=== PATIENT | male | born 1965 | race Caucasian/White ===

== ENCOUNTER 2018-04-03 19:30 | Inpatient (IN) ==
[~2018-04-03 19:30] MED LIST: Iohexol 350 MG/ML 100 ML Vial (for Cath Lab) IVCONTRAST ONE
[2018-04-03] MEDS ORDERED: Heparin 10,000 UNITS/10 ML Vial (for IV use) IV.PUSH STA (19:32)
[2018-04-03] MEDS ORDERED: Sod Chloride 0.9% Inj 1,000 ML IV.SIG SCH (19:45)
--- NOTE | 2018-04-03 19:45 | XR ---
EXAM DATE: 04/03/2018 7:42 PM EDT AGE/SEX: 53 years / Male INDICATIONS: Chest pain, STEMI alert. CLINICAL DATA: This is the patient's initial encounter. Patient reports that signs and symptoms have been present for 1 day and indicates a pain score of 7/10. MEDICAL/SURGICAL HISTORY: None. None. COMPARISON: No prior exams available for comparison. FINDINGS: Diffuse infiltrates are noted consistent with moderate pulmonary edema versus pneumonia. Clinical cor relation is recommended. The heart is mildly prominent. Degenerative changes and scoliosis of the tho racic spine are noted. CONCLUSION: 1. Diffuse infiltrates are noted consistent with moderate pulmonary edema versus pneumonia. Clinical correlation is recommended. 2. Mild cardiomegaly. Electronically signed by: Larry Langston MD 04/03/2018 7:44 PM EDT
--- NOTE | 2018-04-03 19:48 | ED ---
HPI General Stated Complaint: STEMI Time Seen by Provider: 04/03/18 19:32 Source: patient and EMS Mode of arrival: EMS Limitations: no limitations History of Present Illness HPI narrative: 53-year-old male patient presents to the ER today brought in by EMS, apparently started having substernal chest pains with radiation to the back starting about half an hour prior to EMS arrival. He was given aspirin baby 2. His blood pressure had gone down to 70/30 while on the ambulance, he was given IV fluid boluses. He is cool and diaphoretic, states that chest pain is currently a 7-8 out of 10. He denies any shortness of breath, abdominal pains, or other symptoms. He states that he did have a similar chest pain episodes on Sunday but he had gone away on its own. Complete Quality Measures for STEMI Alert Patients Related Data Allergies Allergy/AdvReac Type Severity Reaction Status Date / Time No Known Allergies Allergy Verified 04/03/18 19:34 Review of Systems ROS: all other systems reviewed are negative PMFSH History History Provided By: Patient Social History Social History Recent Out of Country Travel within the Last 8 Weeks: No Exam Narrative Exam Narrative: GENERAL: Well-developed middle-age male patient who is in moderate distress. Awake and oriented 3. SKIN: Focused skin assessment: Diaphoretic,cool. HEAD: Atraumatic. Normocephalic. EYES: Pupils equal and round. No scleral icterus. No injection or drainage. ENT: No nasal bleeding or discharge. Mucous membranes pink and moist. NECK: Trachea midline. No JVD. CARDIOVASCULAR: Regular rate and rhythm. No murmur appreciated. RESPIRATORY: No accessory muscle use. Clear to auscultation. Breath sounds equal bilaterally. GASTROINTESTINAL: Abdomen soft, non-tender, nondistended. Hepatic and splenic margins not palpable. MUSCULOSKELETAL: No obvious deformities. No clubbing. No cyanosis. No edema. NEUROLOGICAL: Awake and alert. No obvious cranial nerve deficits. Motor grossly within normal limits. Normal speech. PSYCHIATRIC: Appropriate mood and affect; insight and judgment normal. Medical Decision Making MDM Narrative Medical decision making narrative: EKG shows ST elevations in V1 through V3, ST depressions and inferior leads III and aVF. This is concerning for STEMI. Case was discussed with Dr. Foley who states that he would go ahead and called a STEMI alert. Heparin was given in the ER. Patient had taken his own aspirin before EMS arrival. Patient's blood pressure was 220/110 in the ER and nitroglycerin had to be given. He had gotten some IV fluids on EMS transport because his blood pressure was low at one-point. At this point, my plan is to get him ready for catheterization. Patient be admitted to cardiology for further cardiac treatment. Medical Screen Exam Complete: Yes Emergency Medical Condition: Yes Differential Diagnosis Differential Diagnosis: STEMI versus electrolyte abnormalities versus unstable angina versus dysrhythmias Discharge Plan Discharge Disposition Patient Disposition: 30 Still Patient Discharge Condition Condition: Stable Discharge Details Anticipated Discharge Date: 04/03/[address]: [address] elevation myocardial infarction (STEMI) Physicians Team ED Provider: Chicho Cortes Primary Care Provider: UNKNOWN, Discharge Interventions Interventions: Vital Signs Last Done: 04/03/18 19:45 Status ED Status: With Doctor
[2018-04-03 19:56] LABS: Baso # (Auto) 0.1 th/mm3 (0.0-0.2); Baso % (Auto) 1.2 % (0.0-2.0); Eos # (Auto) 0.1 th/mm3 (0.0-0.4); Hemoglobin 16.6 gm/dL (13.0-17.0); Lymph # (Auto) 4.6 th/mm3 (1.0-4.8); Lymph % (Auto) 37.4 % (9.0-44.0); Mean Corpuscular HGB Conc 33.8 % (32.0-36.0); Mean Corpuscular Hemoglobin 30.7 pg (27.0-34.0); Mean Corpuscular Volume 90.9 fL (80.0-100.0); Mean Platelet Volume 9.1 fL (7.0-11.0); Mono # (Auto) 1.2 th/mm3 (0.0-0.9); Mono % (Auto) 9.6 % (0.0-8.0); Neut # (Auto) 6.2 th/mm3 (1.8-7.7); Neut % (Auto) 50.8 % (16.0-70.0); Platelet Count 224 th/mm3 (150-450); Red Blood Count 5.39 mil/mm3 (4.50-5.90); Red Cell Distribution Width 13.6 % (11.6-17.2); White Blood Count 12.2 th/mm3 (4.0-11.0)
[2018-04-03] MEDS ORDERED: Heparin/NS PF Inj 1,000 ML ONE (20:03)
[2018-04-03] MEDS ORDERED: fentaNYL Citrate Inj 100 MCG/2 ML Ampul ONE (20:09)
[2018-04-03] MEDS ORDERED: Heparin 10,000 UNITS/10 ML Vial (for IV use) ONE (20:10)
[2018-04-03 20:12] LABS: Activated Partial Thrombo Time 22.9 sec (24.3-30.1); Prothrombin Time 9.8 sec (9.8-11.6)
[2018-04-03 20:24] LABS: Calcium 9.2 mg/dL (8.5-10.1)
[2018-04-03 20:39] LABS: Creatine Kinase 114 U/L (39-308); Magnesium 2.2 mg/dL (1.5-2.5)
[2018-04-03 20:47] LABS: Troponin I 0.73 ng/mL (0.02-0.05)
[2018-04-03] MEDS ORDERED: Tirofiban Inj 12,500 MCG/250 ML PLAST..BAG ONE (20:50)
[2018-04-03 20:59] LABS: Creatine Kinase MB 2.1 ng/mL (0.5-3.6)
[2018-04-03] MEDS ORDERED: Heparin Drip 25,000 UNIT/250 ML BAG IV.CONT ONE (21:03)
[2018-04-03] MEDS ORDERED: TIROFIBAN BOLUS IV.PUSH ONE (21:16)
[2018-04-03] MEDS ORDERED: Misc Info for Pharmacy OTHER STA (21:16)
--- NOTE | 2018-04-03 21:16 | CATHPROC ---
[facility] HIS Report Study Information Study Number Admission Scheduled Start Study Start [id number] Apr 03 2018 7:50PM 04/03/2018 Apr 03 2018 8:04PM [place] [facility] Cardiac Catheterization Admit Source Facility Department Emergency department [facility] - Penal Officer Physician and Clinical Staff Initial Antonio Anne Sole Tacker Alyson Linn,RUMA Sole Tacker Bertha Alfred ,RT(R) Sole Tacker Madie Cota,RUMA Recorder Aaliyah Rodriguez ,NANCIN Scrub Nayeli Alfonso,SCHOOL PLANT CONSULTANT TECH2 Procedures Performed Procedure Location (Site) Vessel Name Angiogram LV LV Ventricle Coronary Angiograms LCA Left Coronary Coronary Angiograms RCA Right Coronary IABP Fem Art (right) Femoral Art L Heart Cath Stent LAD Prox Left Coronary Wire insertion Fem Art (right) Femoral Art Equipment Time Lube Attendant Description Size Mfg Part Number Used/Scraped [id number] 20:32 [employer] WIRE, ASAHI PROWATER 180CM 180CM Used *[id number] TRANSDUCER, TRUWAVE [id number] 20:10 BARRETT KENDRICK * Used W/STOCKCOCK *[id number] *[id number] [id number] *[id number] *[id number] [id number] *[id number] *[id number] BALLOON, FR8 50CC SENSATION [id number] 20:58 MAQUET FR 8 50CC Used PLUS 01U *[id number] 20:10 [employer] BLANKET,WARM AIR CCL * Used *[id number] 20:10 [employer] PACK, CCL CUSTOM * Used *[id number] 20:10 [employer] PACER PEN, SKIN DUAL W/ RULER * Used *[id number] 20:38 [employer] BALLOON, 2.5 X 10MM EUPHORA 10MM Used *[id number] 20:39 [employer] STENT, 4.0 15 INTEGRITY 4.0 15 Used *[id number] 20:29 [employer] MEDICAL 30 PETER INDEFLATOR Used *[id number] 20:29 [employer] MEDICAL SHEATH, FR6.5 PRELUDE 11CM FR 6.5 038ACT Used *[id number] 20:10 [employer] MEDICAL WIRE, 3MMJ .035 180CM 180CM Used *[id number] 20:10 NAMIC MANIFOLD, 4 PORT * Used *[id number] 20:10 [employer] OMNIPAQUE, 350 MG, 150ML 150ML [id number] Used [id number] 20:10 [employer] MEDICAL SHEATH, FR4 TERUMO (10CM) FR 4 Used *[id number] Equipment Model, Serial, Lot Number and Expiration Data Description Model Number Serial Number Lot Number Expiration Date STENT, 4.0 15 INTEGRITY [id number] 01-25-2019 History: Current Medications Medication Dosage/Unit Route Frequency Last Date/Time Taken ASA 324 mg History: Allergies Allergy Reaction No Known Allergies History: Risk Factors Family History of Hypertension Dyslipidemia Previous WI Previous Heart Failure Premature CAD No No No No No Prior Valve Prior PCI Prior CABG Surgery No No No Cerebrovascular Peripheral Artery Chronic Lung On Dialysis Diabetes Disease Disease Disease No No No No No History: Symptoms/Diagnosis Selection Items Chest pain History: Stress Tests Stress or Imaging Studies Performed No History: Other Current Smoker Method Quit No Chew 10 Years Ago Labs Hgb (g/dl) Hct (%) WBC (l/cumm) Platelets (thousands) 11.60-17.00 35.00-51.00 4.00-11.00 150.00-450.00 16.6 49 12.2 224 Glucose (mg/dl) BUN (mg/dl) Creatinine (mg/dl) BUN:Creatinine (1:x) 74.00-106.00 7.00-18.00 0.50-1.30 10.00-20.00 348 24 1.1 21.8 Na (meq/l) K (meq/l) 136.00-145.00 3.50-5.10 135 5.8 Medication Medication Total Dose (Bolus/Oral) Medication Total Dosage/Unit 1% XYLOCAINE 10 mL AGGRASTAT BOLUS 58 mL EFFIENT 60 mg FENTANYL 25 mcg HEPARIN 8100 units OXYGEN 19 l/min VERSED 1 mg Medications (Bolus/Oral) Medication Time Given Dosage/Unit Administered By Reason OXYGEN 04/03/2018 8:21:46 PM 4 l/min Patient arrived on 4 l/min OXYGEN via Nasal. 1% XYLOCAINE 04/03/2018 8:30:05 PM 10 mL Antonio Foley Patient arrived on 10 mL 1% XYLOCAINE given by Antonio Foley via Subcutaneous. Ordered by Antonio Foley. VERSED 04/03/2018 8:34:18 PM 1 mg Alyson Linn 1 mg VERSED given in lab by Alyson Linn RN via Peripheral IV. Ordered by Antonio Foley. FENTANYL 04/03/2018 8:35:28 PM 25 mcg Alyson Linn 25 mcg FENTANYL given in lab by Alyson Linn RN via Peripheral IV. Ordered by Antonio Foley. OXYGEN 04/03/2018 8:40:38 PM 15 l/min Alyson Linn 15 l/min OXYGEN given in lab by Alyson Linn RN via Nasal. Ordered by Antonio Foley. HEPARIN 04/03/2018 8:41:37 PM 8100 units Alyson Linn 8100 units HEPARIN given in lab by Alyson Linn RN via Peripheral IV. Ordered by Antonio Foley . EFFIENT 04/03/2018 8:55:35 PM 60 mg Alyson Linn 60 mg EFFIENT given in lab by Alyson Linn RN via Oral. Ordered by Antonio Foley. AGGRASTAT BOLUS 04/03/2018 8:57:21 PM 58 mL Alyson Linn 58 mL AGGRASTAT BOLUS given in lab by Alyson Linn RN via Peripheral IV. Ordered by Moises Foley. Medication (Drip) Medication Time Given Dosage/Unit Concentration/Unit Diluent (ml) Solution AGGRASTAT DRIP 04/03/2018 9:02:14 PM 0.151 mcg/kg/min 12.5 mg 250 NaCl .9 0.151 mcg/kg/min AGGRASTAT DRIP given in lab by Alyson Linn RN via Peripheral IV. Pump/Drip Flow = 21 ml/hr using NaCl .9 with a concentration of 12.5 mg in 250 ml. Ordered by Antonio Foley. HEPARIN DRIP 04/03/2018 9:05:43 PM 1200 units/hr 72263 units 250 D5W 1200 units/hr HEPARIN DRIP given in lab by Madie Cota RN via Peripheral IV. Pump/Drip Flow = 12 ml/hr [place]5W [place] [address] units in 250 ml. Ordered by Antonio Foley. IV Solutions 04/03/2018 8:24:51 PM 50 mL (IV) NaCl .9 Patient arrived on IV Solutions via Peripheral IV. Pump/Drip Flow using NaCl .9. NIPRIDE 04/03/2018 8:43:14 PM 100 mcg 100 mcg NIPRIDE given in lab by Antonio Foley via Intra-coronary. Ordered by Antonio Foley. NIPRIDE 04/03/2018 8:44:20 PM 100 mcg 100 mcg NIPRIDE given in lab by Antonio Foley via Intra-coronary. Ordered by Antonio Foley. Initial Case Assessment Cardiovascular HR Rhythm NIBP Chest Pain 114 stemi 171/126 7 Edema Present Skin color Skin Mild Normal Warm Dry Circulatory - Right Pulses Dorsalis Pedis Femoral 2 1 Scale (0,1,2,3,4,d) Circulatory - Left Pulses Dorsalis Pedis Femoral 2 1 Scale (0,1,2,3,4,d) Neurological State Oriented to time-place- Alert Moves all extremities person Respiration - General Respiration Rate SpO2 (%) O2 (lpm) (B/min) 12 84 4 Final Case Assessment Cardiovascular HR Rhythm NIBP Chest Pain 110 ST 130/89 5 Edema Present Skin color Skin None Normal Warm Dry Circulatory - Right Pulses Dorsalis Pedis Femoral 2 1 Scale (0,1,2,3,4,d) Circulatory - Left Pulses Dorsalis Pedis Femoral 2 1 Scale (0,1,2,3,4,d) Circulatory - Lower Extremities Color Lower Right Color Lower Left Normal Normal Chronological Log Time Study Chronological Log 20:08:14 Emergency Room notified that Penal Officer is ready. 20:15:27 Patient arrived via Bed. 20:15:28 Patient Name, D.O.B, / Armband Verified By R.N. 20:15:31 Pre-op and post- op instructions given; patient acknowledges understanding of instructions. 20:21:46 Patient arrived on 4 l/min OXYGEN via Nasal. Vitals capture started with the following parameters, Patient=Adult, Interval=3 min, Initial Pr tpfxcb=152 mmHg, 20:24:33 Deflation Rate=5 mmHg, Cuff placed on Left Arm 20:24:41 Bilateral groins prepped with 2% chlorhexidine, and draped after a 3 minute waiting time. 20:24:43 Patient has been NPO for More than 6Hrs. 20:24:48 Skin Breakdown- 20:24:49 Patient Warmer Placed on the Table. 20:24:50 Disposable Defibrillator Pads Placed On Patient. 20:24:50 [place] Prominences Protected 20:24:51 A # 20 IV was noted in the Forearm (right). Grade = 0 20:24:51 Patient arrived on IV Solutions via Peripheral IV. Pump/Drip Flow using NaCl .9. 20:24:52 History and physical on the chart or being dictated. Assessment: Initial Case, XM=009 BPM, Rhythm=stemi, KEYM=027/126 mmhg, Chest Pain=7, Edema=Mild , Color=Normal, Skin = Warm, Dry Right Pulses: Giorgio Ped=2, Femoral=1 20:24:52 Left Pulses: Giorgio Ped=2, Femoral=1 Neurological: State=Alert, Ox3, PEREZ Respiration: Resp=12 B/min, SpO2=84 %, O2=4 lpm 20:25:19 HM=668 bpm, FLUJ=728/126 mmhg, SpO2=84.0 %, Resp=12 B/min, Pain=7, [place]=10, Mcclure=2 20:25:47 Reference ECG taken 20:25:54 MD arrived. Time Out. Correct patient, correct procedure, correct physician, labs, allergies, and equipment verified with laboratory chief 20:27:36 team present. Fire risk assesment completed (see hard stop sheet for coding). Time Out Conc urred by MD and individual staff in procedure. 20:28:21 PW=441 bpm, CEMZ=893/119 mmhg, SpO2=91.0 %, Resp=15 B/min 20:28:41 Case Start 20:30:05 Patient arrived on 10 mL 1% XYLOCAINE given by Antonio Foley via Subcutaneous. Ordered b y Antonio Foley. 20:30:23 Pressure channel 1 zeroed. 20:31:08 PATIENT RECEIVED HEPARIN 6000 UNITS AND ASA 324 MG PRIOR TO SKY CAP ARRIVAL 20:31:37 Access site was Right Femoral Artery. 20:31:44 A SHEATH, FR6.5 PRELUDE 11CM FR 6.5 was advanced into the Fem Art (right) using the Percuta neous technique. 20:31:54 LD=160 bpm, LVJI=895/120 mmhg, SpO2=92.0 %, Resp=15 B/min A XB 4.0 GUIDE CATHETER FR 6 was advanced over a wire. OMNIPAQUE, 350 MG, 150ML 150ML was used for 20:32:43 injections. 20:32:52 Activated Clotting Time Drawn Recorded Pressure: Ao, KA=011, Condition=Condition 1 20:33:39 (Aorta) Ao 132/98/115 20:34:18 MU=798 bpm, PASA=607/107 mmhg, SpO2=89.0 %, Resp=17 B/min 20:34:18 1 mg VERSED given in lab by Alyson Linn, RUMA via Peripheral IV. Ordered by Moises Foley. 20:34:40 The LCA was injected and visualized at various angles. OMNIPAQUE, 350 MG, 150ML 150ML used . 20:35:28 25 mcg FENTANYL given in lab by Alyson Linn RN via Peripheral IV. Ordered by Antonio Foley. 20:35:42 ACT (Normal Range 90-180) = 174 20:36:04 A WIRE, ASAHI PROWATER 180CM 180CM was inserted via Fem Art (right). 20:37:18 OT=661 bpm, RKNI=238/109 mmhg, SpO2=95.0 %, Resp=19 B/min 20:37:40 Interventional wire has crossed the lesion An STENT, 4.0 15 INTEGRITY 4.0 15 Bare Metal Stent was inserted through a XB 4.0 GUIDE CATHETER FR 6 over a 20:39:20 WIRE, ASAHI PROWATER 180CM 180CM. 20:40:22 JN=815 bpm, WIFX=424/116 mmhg, SpO2=94.0 %, Resp=21 B/min 20:40:38 15 l/min OXYGEN given in lab by Alyson Linn, RUMA via Nasal. Ordered by Antonio Foley. A STENT, 4.0 15 INTEGRITY 4.0 15 was deployed using a 30 PETER INDEFLATOR at 10 atmospheres for 1 0 seconds in 20:41:15 the LAD Prox. 20:41:37 8100 units HEPARIN given in lab by Alyson Linn, RUMA via Peripheral IV. Ordered by Antonio Ansari. 20:41:57 Delivery device removed 20:43:14 100 mcg NIPRIDE given in lab by Antonio Foley via Intra-coronary. Ordered by Elise Foley rthur. 20:43:18 UQ=658 bpm, EQHH=057/102 mmhg, SpO2=95.0 %, Resp=26 B/min, Pain=5 20:44:20 100 mcg NIPRIDE given in lab by Antonio Foley via Intra-coronary. Ordered by Elise Foley rthur. 20:44:27 Activated Clotting Time Drawn 20:45:56 Wire removed 20:46:00 Catheter was removed 20:46:14 FK=942 bpm, EENM=743/97 mmhg, SpO2=89.0 %, Resp=6 B/min A JR 4.0 INFINITI CATHETER FR 4 was advanced over a wire. OMNIPAQUE, 350 MG, 150ML 150ML was us ed for 20:46:22 injections. Recorded Pressure: LV, YI=997, Condition=Condition 1 20:47:42 (Left Ventricle) LV 127/21/33 Recorded Pressure: LV, Ao, BF=220, Condition=Condition 1 20:47:57 (Left Ventricle) LV 123/-3/31, (Aorta) Ao 131/98/114 20:48:30 The RCA was injected and visualized at various angles. OMNIPAQUE, 350 MG, 150ML 150ML used . 20:49:17 RS=069 bpm, TYVN=332/111 mmhg, SpO2=83.0 %, Resp=17 B/min, Pain=3 After removing the current catheter a PIGTAIL ANG. INFINITI CATHETER FR 4 was advanced over a W JIMMY, 3MMJ .035 20:51:25 180CM 180CM. 20:52:48 LC=428 bpm, GZDG=875/95 mmhg, SpO2=96.0 %, Resp=16 B/min 20:53:02 The LV was injected at 10 cc/sec for a total of 20. OMNIPAQUE, 350 MG, 150ML 150ML used. 20:53:57 Catheter was removed 20:55:15 LP=856 bpm, KHLK=645/110 mmhg, SpO2=95.0 %, Resp=23 B/min 20:55:35 60 mg EFFIENT given in lab by Alyson Linn, RN via Oral. Ordered by Antonio Foley. 20:55:53 Sheath exchanged for intra-aortic balloon insertion. 20:57:21 58 mL AGGRASTAT BOLUS given in lab by Alyson Linn, RN via Peripheral IV. Ordered by Antonio Grullon. An BALLOON, FR8 50CC SENSATION PLUS FR 8 50CC was advanced to the descending aorta. Proper plac ement was 20:57:59 confired under fluoroscopy and the balloon was sutured in place. Ratio = 1. Augmented BP 118/76 20:58:15 PC=230 bpm, IOKM=963/97 mmhg, SpO2=96.0 %, Resp=11 B/min 21:01:14 ZN=669 bpm, TSVR=453/94 mmhg, SpO2=97.0 %, Resp=18 B/min 0.151 mcg/kg/min AGGRASTAT DRIP given in lab by Alyson Linn, RN via Peripheral IV. Pump/Dri p Flow = 21 ml/hr 21:02:14 using NaCl .9 with a concentration of 12.5 mg in 250 ml. Ordered by Antonio Foley. 21:02:25 ACT (Normal Range 90-180) = 259 21:03:35 Case End (Physician broke scrub) 21:04:16 HE=991 bpm, EHLL=716/89 mmhg, SpO2=98.0 %, Resp=18 B/min 1200 units/hr HEPARIN DRIP given in lab by Madie Cota, RUMA via Peripheral IV. Pump/Drip Anshu w = 12 ml/hr using 21:05:43 [place] [address] units in 250 ml. Ordered by Antonio Foley. Assessment: Final Case, CB=443 BPM, Rhythm=ST, XSZU=058/89 mmhg, Chest Pain=5, Edema=None, Col or=Normal, Skin = Warm, Dry Right Pulses: Giorgio Ped=2, Femoral=1 21:05:59 Left Pulses: Giorgio Ped=2, Femoral=1 Lower Right Extremities: Color=Normal Lower Left Extremities: Color=Normal 21:07:14 TD=430 bpm, SVON=401/101 mmhg, SpO2=97.0 %, Resp=10 B/min 21:07:25 In the Fem Art (right) the sheath was sutured in place by Madie Cota, RUMA. 21:07:26 Sterile dressing applied to site 21:07:27 No case complications noted. 21:07:28 Cine recording checked. 21:07:30 Bedside Report will be given. 21:07:31 Implantable Device card placed in patient's chart. 21:07:53 A Left Heart Cath was performed. 21:10:12 EK=009 bpm, NKGR=931/96 mmhg, SpO2=98.0 %, Resp=12 B/min 21:14:00 ME=311 bpm, TIIK=119/97 mmhg, SpO2=97.0 %, Resp=23 B/min 21:19:15 Patient moved to stretcher End Study - Contrast Media Used In Study Contrast Total Opened (mL) Total Used (mL) Total Wasted (mL) Omnipaque 170 170 0 End Study - Maximum Contrast Load Max Contrast Load (mL) 525.4 End Study - Radiation Exposure Fluoro Time (minutes) 5.8 End Study - Patient Disposition Complications Transferred To Interventional Outcome No Critical Care Bed successful
[2018-04-03] MEDS ORDERED: Tirofiban Inj 12,500 MCG/250 ML PLAST..BAG IV.CONT SCH (22:00)
[2018-04-03] MEDS: Heparin Drip 25,000 UNIT/250 ML BAG IV.CONT PRN (22:00)
[2018-04-03] MEDS ORDERED: Dextrose 50% in Water 50 ML Vial IV.PUSH PRN (22:35)
--- NOTE | 2018-04-03 22:37 | P.CONCC ---
History of Present Illness Service: CC Consult date: 04/03/18 Requesting Physician: Antonio Foley Reason for Consult: CC management Primary Care Provider: UNKNOWN History of Present Illness: 53-year-old male patient presents for an evaluation of substernal chest pains with radiation to the back starting about half an hour prior to EMS arrival. He was given aspirin 81mg 2. His blood pressure had gone down to 70/30 while on the ambulance, he was given IV fluid boluses. In the emergency department he was cool and diaphoretic, stating that chest pain was currently a 7-8 out of 10. He denied any shortness of breath, abdominal pains, or other symptoms. He did have a similar chest pain episodes on Sunday but he had gone away on its own. He was taken emergently to cardiac catheterization lab where the LAD occlusion was treated with a CHANDAN and IABP was placed for hemodynamic instability by twisting frame fixer. Review of Systems All other systems reviewed negative except as stated in HPI [facility] - History History Provided By: Patient - Medical History Medical History: Medical History (Last Updated 04/03/18 @ 19:43 by Kaitlynn Faulkner) Patient denies medical problems - Surgical History Surgical History: Surgical History (Last Updated 04/03/18 @ 22:30 by Adalid Verma MD) No history of previous surgery (Acute) - Social History I have reviewed the patient's Social History: Yes - Tobacco History Second Hand Smoke Exposure: No Tobacco Use In Past 30 Days: Yes Smoking Status: Never smoker Tobacco Type: Smokeless Tobacco - Alcohol History How Often Do You Have a Drink Containing Alcohol: 2 to 3 times a week - Substance Use History Substance History: No History of Abuse - Travel History Recent Travel Out of the Country Within the Last 8 Weeks: No - Immunization History Tetanus Immunization: Unsure Hx Influenza Vaccine This Season: No Medications and Allergies Active Medications: Active Medications Aspirin (Aspirin Chew) 162 mg PO DAILY [facility] Sodium Chloride (Ns Inj) 1,000 mls @ 30 mls/hr IV.SIG .Q24H [facility] Stop: 04/04/18 19:44 Last Admin: 04/03/18 19:50 Dose: 30 mls/hr Tirofiban/Sodium Chloride (Aggrastat Inj) 12,500 mcg in 250 mls @ 0 mls/hr IV.CONT .Q0M [facility]; Protocol Prasugrel (Effient) 10 mg PO DAILY [facility] Sodium Chloride (Ns Flush) 2 ml IV.FLUSH BID [facility] Sodium Chloride (Ns Flush) 2 ml IV.FLUSH PRN PRN PRN Reason: FLUSH AFTER USING IV ACCESS Allergies Allergy/AdvReac Type Severity Reaction Status Date / Time No Known Allergies Allergy Verified 04/03/18 19:34 Physical Exam Vital signs: Vital Signs 04/03/18 19:30 04/03/18 19:34 04/03/18 19:45 Temperature 97.6 F Pulse Rate 121 H 110 H Respiratory Rate 20 20 Blood Pressure 237/138 H 182/119 H Pulse Oximetry 94 L 91 L 94 L 04/03/18 19:47 04/03/18 19:56 04/03/18 19:57 Temperature Pulse Rate 113 H 112 H Respiratory Rate 20 20 Blood Pressure 188/98 H 175/107 H Pulse Oximetry 93 L 92 L 92 L 04/03/18 20:15 Temperature Pulse Rate 120 H Respiratory Rate 22 Blood Pressure 182/103 H Pulse Oximetry 95 Intake & Output 04/03/18 04/03/18 04/04/18 06:59 18:59 06:59 Intake Total 210 / 210 Balance 210 / 210 Weight 128 kg Intake: IV 10 / 10 Heparin/NS PF Inj 1,000 ML @ 0 10 / 10 mls/hr .ROUTE .[facility] Rx#: [id number] Anesthesia Amount 200 / 200 Other: Weight On Admission 128 kg - Constitutional no acute distress - Routine HEENT Exam Head: Present: normocephalic, atraumatic Eye: Present: EOMI, PERRL, normal accommodation ENT: Present: mucous membranes moist - Routine Neck Exam Present: supple, full ROM. Absent: JVD, carotid bruit - Routine Respiratory Exam Absent: accessory muscle use, rhonchi, stridor, wheezes - Routine Cardiovascular Exam Present: RRR, S1, S2. Absent: murmur, gallop, rubs - Routine Abdominal Exam Present: soft, normoactive bowel sounds. Absent: tenderness, distended - Routine Extremities Exam Absent: cyanosis, clubbing, edema - Routine Skin Exam Present: intact. Absent: cyanosis, erythema - Routine Neurological Exam Present: alert, oriented X3, moving all extremities - Detailed Neurological Exam: Coma Scale Eye Opening: Spontaneous Verbal Response: Oriented Motor Response: Obey commands [place] Coma Scale Total: 15 - Routine Psychiatric Exam Present: normal affect Assessment and Plan - Assessment and Plan Plan: STEMI -Status post emergent cardiac catheterization -LAD CHANDAN -Aggrastat -Prasugrel -Aspirin -Further management per twisting frame fixer Tobacco abuse -Counseling provided Hyperglycemia -Hemoglobin A1c a.m. -Insulin sliding scale DVT GI prophylaxis -Teds SCDs -Pharmacological DVT prophylaxis per twisting frame fixer -Cardiac diet 35 minutes of critical care
[2018-04-04 04:18] LABS: Baso % (Auto) 0.3 % (0.0-2.0); Eos % (Auto) 0.1 % (0.0-4.0); Hematocrit 48.3 % (39.0-51.0); Hemoglobin 16.4 gm/dL (13.0-17.0); Lymph # (Auto) 2.1 th/mm3 (1.0-4.8); Lymph % (Auto) 14.2 % (9.0-44.0); Mean Corpuscular HGB Conc 33.9 % (32.0-36.0); Mean Corpuscular Hemoglobin 30.7 pg (27.0-34.0); Mean Corpuscular Volume 90.6 fL (80.0-100.0); Mean Platelet Volume 9.6 fL (7.0-11.0); Mono # (Auto) 1.3 th/mm3 (0.0-0.9); Mono % (Auto) 8.5 % (0.0-8.0); Neut # (Auto) 11.5 th/mm3 (1.8-7.7); Neut % (Auto) 76.9 % (16.0-70.0); Platelet Count 214 th/mm3 (150-450); Red Blood Count 5.33 mil/mm3 (4.50-5.90); Red Cell Distribution Width 13.6 % (11.6-17.2); White Blood Count 14.9 th/mm3 (4.0-11.0)
[2018-04-04 04:49] LABS: Calcium 8.6 mg/dL (8.5-10.1); Carbon Dioxide 25.9 meq/L (21.0-32.0); Potassium 4.5 meq/L (3.5-5.1)
[2018-04-04 05:15] LABS: Chol/HDL Ratio 5.42 Ratio; HDL Cholesterol 40.7 mg/dL (40.0-60.0)
[2018-04-04] MEDS ORDERED: Tirofiban Inj 12,500 MCG/250 ML PLAST..BAG IV.CONT SCH (05:30)
[2018-04-04 05:49] LABS: Creatine Kinase MB 421.1 ng/mL (0.5-3.6)
[2018-04-04 05:58] LABS: CKMB Percent 6.2 % (0.0-4.0)
--- NOTE | 2018-04-04 07:39 | MA ---
cc: Antonio Foley MD DATE: 04/03/2018 PROCEDURES: Left heart catheterization, left ventriculography, coronary angiography, aortic root angiography, right femoral artery angiography, direct primary percutaneous coronary intervention with bare metal stent of the ostial proximal left anterior descending, intraaortic balloon pump placement. INDICATIONS FOR PROCEDURE: STEMI, coronary artery disease, cardiogenic shock, decompensated congestive heart failure, cardiomyopathy, placement of intraaortic balloon pump. DETAILS OF PROCEDURE: The patient was brought to the cardiac catheterization laboratory, prepped and draped in the usual sterile fashion. 10 mL of 1% lidocaine was used to locally anesthetize the right common femoral artery. A 6-Tongan sheath was placed in the right common femoral artery. We went immediately with a 6-Tongan XB 4.0 guide. Initial ACT was 178. Additional 70 units per kilograms of heparin was given. ACT was 259. Angiography revealed an occluded LAD at the ostium, a medium size to large ramus intermedius vessel with no significant disease and a relatively small left circumflex vessel, reference vessel diameter of probably 3 mm proximally. No significant disease in the left circ. There is a medium size obtuse marginal vessel, which comes off the mid AV groove left circumflex with no significant disease angiographically. The left circumflex vessel is a small diminutive vessel, probably 0.5 mm in diameter. Across the ostial LAD with a 0.14 [place] guidewire, this resulted in reperfusion. Patient's chest pain immediately improved. We then placed a 4.0 x 15 Integrity stent 10 atmospheres for 20 seconds. Stenosis went from 100% with NELL 0 flow to 0% with NELL 3 flow. We gave 100 mcg of intracoronary Nipride x2. We then proceeded to perform left ventriculography, right coronary angiography with a 4-Tongan JR4 diagnostic catheter. The LV pressures 130/24/33. The left ventricle appeared to be mild to moderately enlarged fluoroscopically. The mid to distal anteroapical wall was moderate to severely hypokinetic, but there was wall motion suggesting myocardial viability and/or stunned myocardium. The right coronary artery is a large, dominant vessel, at least 4 mm in diameter, reference vessel diameter in the proximal mid segment relative stenosis proximal segment up to 20% angiographically, also some subtle tapering in the mid segment up to 20% angiographically. The right PDA is a relatively small vessel, 2.25 mm in diameter at most. Posterolateral artery is a larger vessel, 3 mm reference vessel diameter, ostial bifurcation. Otherwise, no significant disease angiographically. Then performed aortic root angiography to rule out aortic valve regurgitation. There was no evidence of aortic valve regurgitation. Right common femoral artery angiography, external iliac angiography showed no stenosis and placement of the sheath well above the bifurcation of the common femoral artery, below the inguinal ligament. Then proceeded to place an intraaortic balloon pump. This was successfully placed and started at a 1:1 ratio. CONCLUSION: 1. A STEMI culprit occluded ostial left anterior descending as detailed above. 2. Decompensated congestive heart failure, cardiogenic shock, ejection fraction approximately 30% with moderate to severe hypokinesis of the anterior apical wall. LVEDP equal to 34. 3. Otherwise, mild right coronary artery disease in a right dominant system. 4. Successful primary PCI with bare metal stent of the ostial proximal left anterior descending from 100% with NELL 0 flow to 0% with NELL 3 flow. 5. Note the left anterior descending diagonal beyond the stent has no significant disease. The left anterior descending +is a large transapical vessel. The first diagonal artery beyond the stent has mild disease of 20% angiographically. 5. Effient 60 mg p.o. load. Aggrastat drip per protocol. We will restart heparin drip 1200 units an hour, due to the placement of the intraaortic balloon pump. We will get an driver merchandiser consult. We will treat lipids NCP guidelines. We will hold beta tal for now as the patient is in decompensated congestive heart failure with cardiogenic shock, requiring balloon pump placement. We will also hold TYSON inhibitor again due to hemodynamic instability. I anticipate starting these medications in the next 72 hours if the patient can clinically and hemodynamically tolerate them. The patient's current condition is guarded, as this is a very large anterior wall myocardial infarction involving the ostium of the left anterior descending. Antonio Foley MD AWDarwin/ct , 09:11 PM , 09:19 PM
[2018-04-04] MEDS ORDERED: Insulin NovoLOG Aspart Correctional Sugar Inj SQ SCH (08:00)
--- NOTE | 2018-04-04 09:08 | P.PNCC ---
Subjective Subjective Remarks/Hospital Course: 53-year-old male patient presents for an evaluation of substernal chest pains with radiation to the back starting about half an hour prior to EMS arrival. He was given aspirin 81mg 2. His blood pressure had gone down to 70/30 while on the ambulance, he was given IV fluid boluses. In the emergency department he was cool and diaphoretic, stating that chest pain was currently a 7-8 out of 10. He denied any shortness of breath, abdominal pains, or other symptoms. He did have a similar chest pain episodes on Sunday but he had gone away on its own. He was taken emergently to cardiac catheterization lab where the LAD occlusion was treated with a CHANDAN and IABP was placed for hemodynamic instability by broke beater. 04/04 Patient is awake and alert on 4L oxygen. On IABP 1:1 Objective Vital Signs / I&O: Vital Signs 04/03/18 19:30 04/03/18 19:34 04/03/18 19:45 Temperature 97.6 F Pulse Rate 121 H 110 H Respiratory Rate 20 20 Blood Pressure 237/138 H 182/119 H Pulse Oximetry 94 L 91 L 94 L 04/03/18 19:47 04/03/18 19:56 04/03/18 19:57 Temperature Pulse Rate 113 H 112 H Respiratory Rate 20 20 Blood Pressure 188/98 H 175/107 H Pulse Oximetry 93 L 92 L 92 L 04/03/18 20:15 04/03/18 21:45 04/03/18 22:22 Temperature 98.4 F Pulse Rate 120 H 119 H Respiratory Rate 22 29 H Blood Pressure 182/103 H 153/75 H Pulse Oximetry 95 93 L 95 04/03/18 22:46 04/03/18 23:00 04/03/18 23:56 Temperature Pulse Rate 112 H 110 H 112 H Respiratory Rate 28 H 21 26 H Blood Pressure 132/92 H Pulse Oximetry 94 L 96 95 04/04/18 00:00 04/04/18 00:30 04/04/18 00:46 Temperature Pulse Rate 115 H 115 H Respiratory Rate 24 25 H Blood Pressure 140/90 145/94 H Pulse Oximetry 94 L 95 95 04/04/18 01:00 04/04/18 01:30 04/04/18 02:00 Temperature 98.9 F Pulse Rate 116 H 117 H 117 H Respiratory Rate 26 H 26 H 20 Blood Pressure 138/88 133/86 140/97 H Pulse Oximetry 95 94 L 96 04/04/18 02:30 04/04/18 03:00 04/04/18 03:30 Temperature Pulse Rate 109 H 110 H 109 H Respiratory Rate 23 25 H 26 H Blood Pressure 131/99 H 150/100 H 153/85 H Pulse Oximetry 95 95 96 04/04/18 04:00 04/04/18 04:30 04/04/18 07:34 Temperature 99.4 F Pulse Rate 111 H 108 H Respiratory Rate 21 23 Blood Pressure 154/97 H 153/96 H Pulse Oximetry 96 96 96 Intake & Output 04/03/18 04/04/18 04/04/18 18:59 06:59 18:59 Intake Total 460 / 460 Output Total 1750 / 1750 Balance -1290 / -1290 Weight 123.5 kg Intake: IV 260 / 260 Heparin/NS PF Inj 1,000 ML @ 0 10 / 10 mls/hr .ROUTE .STK-MED [facility] Rx#: [id number] Aggrastat Inj 12,500 mcg In 250 250 / 250 ml @ Per Protocol IV.CONT .Q0M COUNT INCLUDES THE [facility] Rx#:[id number] Anesthesia Amount 200 / 200 Output: Urine 1750 / 1750 Other: # Bowel Movements 0 Weight On Admission 128 kg Result Diagrams: 04/04/18 03:34 04/04/18 03:34 Other Results: Laboratory Results - last 12 hr 04/03/18 04/03/18 04/03/18 19:32 21:45 23:15 WBC RBC Hgb Hct MCV MCH MCHC RDW Plt Count MPV Neut % (Auto) Lymph % (Auto) [place] % (Auto) Eos % (Auto) Baso % (Auto) Neut # (Auto) Lymph # (Auto) [place] # (Auto) Eos # (Auto) Baso # (Auto) WBC Differential Differential Comment APTT Sodium Potassium Chloride Carbon Dioxide Anion Gap BUN Creatinine Estimated GFR POC Glucose 362 H Random Glucose Calcium Total Creatine Kinase CK-MB (CK-2) CK-MB (CK-2) % B-Natriuretic Peptide 18 Triglycerides Cholesterol LDL Cholesterol, Calc HDL Cholesterol Cholesterol/HDL Ratio Nasal Screen MRSA (PCR) Not detected 04/04/18 04/04/18 04/04/18 03:34 03:34 03:34 WBC 14.9 H RBC 5.33 Hgb 16.4 Hct 48.3 MCV 90.6 MCH 30.7 MCHC 33.9 RDW 13.6 Plt Count 214 MPV 9.6 Neut % (Auto) 76.9 H Lymph % (Auto) 14.2 [place] % (Auto) 8.5 H Eos % (Auto) 0.1 Baso % (Auto) 0.3 Neut # (Auto) 11.5 H Lymph # (Auto) 2.1 [place] # (Auto) 1.3 H Eos # (Auto) 0.0 Baso # (Auto) 0.0 WBC Differential . Differential Comment Auto diff final APTT 53.6 H D Sodium 139 Potassium 4.5 Chloride 102 Carbon Dioxide 25.9 Anion Gap 11 BUN 17 Creatinine 1.02 Estimated GFR 76 L POC Glucose Random Glucose 327 H Calcium 8.6 Total Creatine Kinase 6809 H CK-MB (CK-2) 421.1 H CK-MB (CK-2) % 6.2 H* B-Natriuretic Peptide Triglycerides 341 H Cholesterol 221 H LDL Cholesterol, Calc 112 H HDL Cholesterol 40.7 Cholesterol/HDL Ratio 5.42 Nasal Screen MRSA (PCR) 04/04/18 07:56 WBC RBC Hgb Hct MCV MCH MCHC RDW Plt Count MPV Neut % (Auto) Lymph % (Auto) [place] % (Auto) Eos % (Auto) Baso % (Auto) Neut # (Auto) Lymph # (Auto) [place] # (Auto) Eos # (Auto) Baso # (Auto) WBC Differential Differential Comment APTT Sodium Potassium Chloride Carbon Dioxide Anion Gap BUN Creatinine Estimated GFR POC Glucose 324 H Random Glucose Calcium Total Creatine Kinase CK-MB (CK-2) CK-MB (CK-2) % B-Natriuretic Peptide Triglycerides Cholesterol LDL Cholesterol, Calc HDL Cholesterol Cholesterol/HDL Ratio Nasal Screen MRSA (PCR) Imaging: Chest X-Ray 04/03/18 19:34 CONCLUSION: 1. Diffuse infiltrates are noted consistent with moderate pulmonary edema versus pneumonia. Clinical correlation is recommended. 2. Mild cardiomegaly. Objective Remarks: GENERAL: Patient is 53 yo lying in bed in NAD SKIN: Warm and dry. HEAD: Normocephalic. EYES: No scleral icterus. No injection or drainage. NECK: Supple, trachea midline. No JVD or lymphadenopathy. CARDIOVASCULAR: Regular rate and rhythm without murmurs, gallops, or rubs. RESPIRATORY: Breath sounds equal bilaterally. No accessory muscle use. GASTROINTESTINAL: Abdomen soft, non-tender, nondistended. MUSCULOSKELETAL: No cyanosis, or edema. Neuro: Awake and alert Assessment and Plan - Assessment and Plan Plan: 1)Resp Insuff 2)STEMI 3)Leukocytosis 4)Tobacco abuse 5)Hyperglycemia 6)Obesity Plan Neuro: Awake and alert Pulm: Continue with oxygen kep sats >92% Place on Bronchodilators and check CXR CV: Monitor HR and BP keep MAP>65mmHg -Status post emergent cardiac catheterization-LAD CHANDAN, EF 30%. Cards- Dr. Foley On Aggrastat and Heparin drip. Continue Prasugrel 10mg daily, Aspirin IABP 1: 1 : Monitor renal function, I/O', electrolytes replacement per protocol d/c IVF and diurese with Lasix 40mg x1 GI: Start PO cardiac diet ID: Monitor for signs of infecting ( Fever, WBC) Check sputum cx, UA with cx if indicated Heme: Monitor CBC, coags- On Heparin drip. Endo: Increase SSI medium scale for glycemic control DVT GI prophylaxis -Teds SCDs - DVT prophylaxis on Heparan drip Level 3
[2018-04-04] MEDS ORDERED: Dextrose 50% in Water 50 ML Vial IV.PUSH PRN ×2 (09:28→17:35)
[2018-04-04] MEDS ORDERED: Heparin 10,000 UNITS/10 ML Vial (for IV use) IV.PUSH PRN (10:13)
[2018-04-04 10:18] LABS: Albumin 3.5 g/dL (3.4-5.0)
[2018-04-04 10:19] LABS: Total Protein 7.3 g/dL (6.4-8.2)
--- NOTE | 2018-04-04 10:59 | XR ---
EXAM DATE: 04/04/2018 10:41 AM EDT AGE/SEX: 53 years / Male INDICATIONS: Short of breath. CLINICAL DATA: This is the patient's subsequent encounter. Patient reports that signs and symptoms h ave been present for 2 days and indicates a pain score of 0/10. MEDICAL/SURGICAL HISTORY: None. None. COMPARISON: [place], CHEST 1V SINGLE AP, 04/03/2018. . FINDINGS: There is patchy perihilar infiltrate, most conspicuously on the right. No evidence of effusion. Cardi ac contours are satisfactory. CONCLUSION: Perihilar infiltrates, right worse than left Electronically signed by: Chris Jimenez MD 04/04/2018 10:58 AM EDT
[2018-04-04] MEDS: Insulin NovoLOG Aspart Correctional Sugar Inj SQ SCH ×4 (11:31→23:53)
[2018-04-04 11:33] LABS: Creatine Kinase 4155 U/L (39-308)
[2018-04-04] MEDS: Heparin 10,000 UNITS/10 ML Vial (for IV use) IV.PUSH PRN (11:40)
[2018-04-04 11:49] LABS: Creatine Kinase MB 240.2 ng/mL (0.5-3.6)
[2018-04-04 11:58] LABS: CKMB Percent 5.8 % (0.0-4.0)
[2018-04-04 12:37] LABS: Bacteria,Urine Rare /hpf; Bilirubin,Urine Negative (Negative); Clarity,Urine Hazy (Clear); Color,Urine Yellow (Yellw/Straw); Glucose,Urine (UA) 500 or Greater mg/dL (Negative); Leukocyte Esterase,Urine Negative (Negative); Nitrite,Urine Negative (Negative); Specific Gravity,Urine 1.029 (1.002-1.035)
--- NOTE | 2018-04-04 13:07 | P.PNCA ---
Subjective Interval history: assymptomatic in nad Physical Exam Vital signs: Vital Signs 04/03/18 19:30 04/03/18 19:34 04/03/18 19:45 Temperature 97.6 F Pulse Rate 121 H 110 H Respiratory Rate 20 20 Blood Pressure 237/138 H 182/119 H Pulse Oximetry 94 L 91 L 94 L 04/03/18 19:47 04/03/18 19:56 04/03/18 19:57 Temperature Pulse Rate 113 H 112 H Respiratory Rate 20 20 Blood Pressure 188/98 H 175/107 H Pulse Oximetry 93 L 92 L 92 L 04/03/18 20:15 04/03/18 21:45 04/03/18 22:22 Temperature 98.4 F Pulse Rate 120 H 119 H Respiratory Rate 22 29 H Blood Pressure 182/103 H 153/75 H Pulse Oximetry 95 93 L 95 04/03/18 22:46 04/03/18 23:00 04/03/18 23:56 Temperature Pulse Rate 112 H 110 H 112 H Respiratory Rate 28 H 21 26 H Blood Pressure 132/92 H Pulse Oximetry 94 L 96 95 04/04/18 00:00 04/04/18 00:30 04/04/18 00:46 Temperature Pulse Rate 115 H 115 H Respiratory Rate 24 25 H Blood Pressure 140/90 145/94 H Pulse Oximetry 94 L 95 95 04/04/18 01:00 04/04/18 01:30 04/04/18 02:00 Temperature 98.9 F Pulse Rate 116 H 117 H 117 H Respiratory Rate 26 H 26 H 20 Blood Pressure 138/88 133/86 140/97 H Pulse Oximetry 95 94 L 96 04/04/18 02:30 04/04/18 03:00 04/04/18 03:30 Temperature Pulse Rate 109 H 110 H 109 H Respiratory Rate 23 25 H 26 H Blood Pressure 131/99 H 150/100 H 153/85 H Pulse Oximetry 95 95 96 04/04/18 04:00 04/04/18 04:30 04/04/18 05:00 Temperature 99.4 F Pulse Rate 111 H 108 H 110 H Respiratory Rate 21 23 24 Blood Pressure 154/97 H 153/96 H 148/93 H Pulse Oximetry 96 96 96 04/04/18 05:30 04/04/18 06:00 04/04/18 06:30 Temperature Pulse Rate 110 H 107 H 106 H Respiratory Rate 23 23 19 Blood Pressure 152/104 H 156/101 H 159/101 H Pulse Oximetry 93 L 97 96 04/04/18 07:00 04/04/18 07:30 04/04/18 07:34 Temperature Pulse Rate 110 H 105 H Respiratory Rate 17 22 Blood Pressure 163/97 H 171/89 H Pulse Oximetry 96 97 96 04/04/18 08:00 04/04/18 08:30 04/04/18 09:00 Temperature 98.1 F Pulse Rate 106 H 108 H 110 H Respiratory Rate 23 25 H 23 Blood Pressure 162/104 H 154/100 H Pulse Oximetry 96 96 96 04/04/18 10:00 04/04/18 10:14 04/04/18 11:00 Temperature Pulse Rate 109 H 109 H 110 H Respiratory Rate 20 10 L 25 H Blood Pressure 136/96 H Pulse Oximetry 97 96 04/04/18 12:00 Temperature 98.6 F Pulse Rate 113 H Respiratory Rate 22 Blood Pressure 139/87 Pulse Oximetry 96 Intake & Output 04/03/18 04/04/18 04/04/18 18:59 06:59 18:59 Intake Total 710 / 710 700 / 700 Output Total 1750 / 1750 Balance -1040 / -1040 700 / 700 Weight 123.5 kg Intake: IV 510 / 510 700 / 700 Heparin/NS PF Inj 1,000 ML @ 0 10 / 10 mls/hr .ROUTE .STK-MED [facility] Rx#: [id number] Aggrastat Inj 12,500 mcg In 250 250 / 250 0 / 0 ml @ Per Protocol IV.CONT .Q0M [facility] Rx#:[id number] NS Inj 1,000 ML @ 30 mls/hr IV. 700 / 700 SIG .Q24H [facility] Rx#:[id number] Anesthesia Amount 200 / 200 Output: Urine 1750 / 1750 Other: # Bowel Movements 0 Weight On Admission 128 kg Assessment and Plan - Assessment (1) CAD (coronary artery disease) Code(s): I25.10 - Atherosclerotic heart disease of [place] coronary artery without angina pectoris Status: Acute (2) CHF (congestive heart failure), NYHA class IV Code(s): I50.9 - Heart failure, unspecified Status: Acute (3) Cardiomyopathy Code(s): I42.9 - Cardiomyopathy, unspecified Status: Acute (4) ST elevation myocardial infarction (STEMI) Code(s): I21.3 - ST elevation (STEMI) myocardial infarction of unspecified site Status: Acute - Plan 1.) CAD - pod # 1 primary pci with bms ost/proximal lad, u/o good, assymptomatic, begin wean iabp to 1:2 x 4 hours then 1:3 overnight if tolerates 1:2; possibly pull iabp 04/05/18 if hemodynamically stable with good u/o, continue aspirin, effient, iv heparin, arthur and beta tal held due to cardiogenic shock, decompensated chf and hemodynamic instability, statin held due to increased lfts; d/w family and nurse in detail at the bedside
[2018-04-04] MEDS: Heparin Drip 25,000 UNIT/250 ML BAG IV.CONT PRN (14:19)
[2018-04-04 16:16] LABS: Hemoglobin A1c 9.6 % (4.3-6.0)
--- NOTE | 2018-04-04 23:54 | ECG ---
Date Performed: 04/04/2018 Time Performed: 06:20:54 PTAGE: 53 years EKG: Sinus tachycardia Poor R wave progression - cannot rule out anteroseptal infarct ST elevati on anteriorly, consideration of STEMI Low QRS voltages in limb leads Abnormal ECG Since the PREVIOUS TRACING , no significant change noted DOCTOR: Alejandro Cano Interpretating Date/Time 04/04/2018 23:52:26
--- NOTE | 2018-04-05 00:13 | ECG ---
Date Performed: 04/03/2018 Time Performed: 22:17:28 PTAGE: 53 years EKG: CONSIDER ACUTE ST ELEVATION AR Sinus tachycardia Possible anterior infarct - age un determined Anterolateral ST elevation, CONSIDER ACUTE INFARCT Abnormal ECG Compared to PREVIOUS TRACING , ST elevations have decreased DOCTOR: Alejandro Cano Interpretating Date/Time 04/05/2018 00:12:01
--- NOTE | 2018-04-05 00:37 | ECG ---
Date Performed: 04/03/2018 Time Performed: 19:31:17 PTAGE: 53 years EKG: SINUS TACHYCARDIA LOW QRS VOLTAGE IN PRECORDIAL LEADS INFERIOR MYOCARDIAL INFARCTION VERNELL LATERAL MYOCARDIAL INFARCTION ACUTE NM INTERPRETATION BASED ON A DEFAULT AGE OF 40 YEARS NO PREVIOUS TRACING DOCTOR: Alejandro Cano Interpretating Date/Time 04/05/2018 00:35:37
[2018-04-05 00:54] LABS: Baso # (Auto) 0.1 th/mm3 (0.0-0.2); Baso % (Auto) 0.7 % (0.0-2.0); Eos % (Auto) 0.1 % (0.0-4.0); Hematocrit 47.3 % (39.0-51.0); Hemoglobin 16.4 gm/dL (13.0-17.0); Lymph # (Auto) 2.3 th/mm3 (1.0-4.8); Lymph % (Auto) 15.5 % (9.0-44.0); Mean Corpuscular HGB Conc 34.7 % (32.0-36.0); Mean Corpuscular Hemoglobin 31.4 pg (27.0-34.0); Mean Corpuscular Volume 90.5 fL (80.0-100.0); Mean Platelet Volume 8.9 fL (7.0-11.0); Mono # (Auto) 1.6 th/mm3 (0.0-0.9); Mono % (Auto) 10.9 % (0.0-8.0); Neut # (Auto) 10.8 th/mm3 (1.8-7.7); Neut % (Auto) 72.8 % (16.0-70.0); Platelet Count 209 th/mm3 (150-450); Red Blood Count 5.23 mil/mm3 (4.50-5.90); Red Cell Distribution Width 13.9 % (11.6-17.2); White Blood Count 14.8 th/mm3 (4.0-11.0)
[2018-04-05 01:15] LABS: Alanine Aminotransferase 122 U/L (12-78); Albumin 3.4 g/dL (3.4-5.0); Anion Gap 10 meq/L (5-15); Aspartate Aminotransferase 322 U/L (15-37); Blood Urea Nitrogen 15 mg/dL (7-18); Carbon Dioxide 28.4 meq/L (21.0-32.0); Chloride 101 meq/L (98-107); Glomerular Filtration Rate 78 mL/min (>89); Glucose,Random 273 mg/dL (74-106); Magnesium 2.6 mg/dL (1.5-2.5); Phosphorus 3.1 mg/dL (2.5-4.9); Potassium 4.1 meq/L (3.5-5.1); Sodium 139 meq/L (136-145)
[2018-04-05 01:17] LABS: Alkaline Phosphatase 78 U/L (45-117); Total Protein 7.6 g/dL (6.4-8.2)
[2018-04-05] MEDS: Heparin 10,000 UNITS/10 ML Vial (for IV use) IV.PUSH PRN (01:22)
[2018-04-05] MEDS: Insulin NovoLOG Aspart Correctional Sugar Inj SQ SCH ×5 (03:52→22:16)
--- NOTE | 2018-04-05 07:10 | P.PNCC ---
Subjective Subjective Remarks/Hospital Course: 53-year-old male patient presents for an evaluation of substernal chest pains with radiation to the back starting about half an hour prior to EMS arrival. He was given aspirin 81mg 2. His blood pressure had gone down to 70/30 while on the ambulance, he was given IV fluid boluses. In the emergency department he was cool and diaphoretic, stating that chest pain was currently a 7-8 out of 10. He denied any shortness of breath, abdominal pains, or other symptoms. He did have a similar chest pain episodes on Sunday but he had gone away on its own. He was taken emergently to cardiac catheterization lab where the LAD occlusion was treated with a CHANDAN and IABP was placed for hemodynamic instability by registered dental assistant rda. 04/04 Patient is awake and alert on 4L oxygen. On IABP 1:1 04/05 No events overnight. Afebrile, IABP 1:3 now. On Heparin drip. Objective Vital Signs / I&O: Vital Signs 04/04/18 07:30 04/04/18 07:34 04/04/18 08:00 Temperature 98.1 F Pulse Rate 105 H 106 H Respiratory Rate 22 23 Blood Pressure 171/89 H 162/104 H Pulse Oximetry 97 96 96 04/04/18 08:30 04/04/18 09:00 04/04/18 10:00 Temperature Pulse Rate 108 H 110 H 109 H Respiratory Rate 25 H 23 20 Blood Pressure 154/100 H 136/96 H Pulse Oximetry 96 96 97 04/04/18 10:14 04/04/18 11:00 04/04/18 12:00 Temperature 98.6 F Pulse Rate 109 H 110 H 113 H Respiratory Rate 10 L 25 H 22 Blood Pressure 139/87 Pulse Oximetry 96 96 04/04/18 13:00 04/04/18 14:00 04/04/18 15:00 Temperature Pulse Rate 105 H 104 H 107 H Respiratory Rate 23 24 23 Blood Pressure 143/82 H Pulse Oximetry 97 97 97 04/04/18 16:00 04/04/18 17:00 04/04/18 18:00 Temperature 98.4 F Pulse Rate 103 H 109 H 108 H Respiratory Rate 20 19 Blood Pressure 143/100 H Pulse Oximetry 96 97 04/04/18 19:50 04/04/18 20:00 04/04/18 22:00 Temperature 97.6 F Pulse Rate 110 H 108 H Respiratory Rate 20 Blood Pressure 156/87 H Pulse Oximetry 97 97 04/05/18 00:00 04/05/18 02:00 04/05/18 04:00 Temperature 99.5 F 99.2 F Pulse Rate 105 H 106 H 102 H Respiratory Rate 18 18 Blood Pressure 100/76 Pulse Oximetry 96 96 04/05/18 06:00 Temperature Pulse Rate 104 H Respiratory Rate Blood Pressure Pulse Oximetry Intake & Output 04/04/18 04/05/18 04/05/18 18:59 06:59 18:59 Intake Total 1384 / 1384 414 / 414 Output Total 2450 / 2450 450 / 450 Balance -1066 / -1066 -36 / -36 Weight 121 kg Intake: IV 1144 / 1144 164 / 164 Heparin/D5W 25,000 U/250 mL 25, 250 / 250 164 / 164 000 unit In 250 ml @ 1,200 UNITS/HR 12 mls/hr IV.CONT TITRATE PRN Rx#:[id number] Aggrastat Inj 12,500 mcg In 250 194 / 194 ml @ Per Protocol IV.CONT .Q0M PEND[facility] S[facility] TO [facility] Rx#:[id number] NS Inj 1,000 ML @ 30 mls/hr IV. 700 / 700 SIG .Q24H PENDING SALE TO [facility] Rx#:[id number] Oral 240 / 240 50 / 50 Anesthesia Amount 200 / 200 Output: Urine 2450 / 2450 450 / 450 Other: # Bowel Movements 0 Result Diagrams: 04/05/18 00:38 04/05/18 00:38 Other Results: Laboratory Results - last 12 hr 04/04/18 04/04/18 04/05/18 19:48 23:46 00:38 WBC 14.8 H RBC 5.23 Hgb 16.4 Hct 47.3 MCV 90.5 MCH 31.4 MCHC 34.7 RDW 13.9 Plt Count 209 MPV 8.9 Neut % (Auto) 72.8 H Lymph % (Auto) 15.5 [place] % (Auto) 10.9 H Eos % (Auto) 0.1 Baso % (Auto) 0.7 Neut # (Auto) 10.8 H Lymph # (Auto) 2.3 [place] # (Auto) 1.6 H Eos # (Auto) 0.0 Baso # (Auto) 0.1 WBC Differential . Differential Comment Auto diff final APTT Sodium Potassium Chloride Carbon Dioxide Anion Gap BUN Creatinine Estimated GFR POC Glucose 339 H 269 H Random Glucose Calcium Phosphorus Magnesium Total Bilirubin AST ALT Alkaline Phosphatase B-Natriuretic Peptide Total Protein Albumin 04/05/18 04/05/18 04/05/18 00:38 00:38 00:38 WBC RBC Hgb Hct MCV MCH MCHC RDW Plt Count MPV Neut % (Auto) Lymph % (Auto) [place] % (Auto) Eos % (Auto) Baso % (Auto) Neut # (Auto) Lymph # (Auto) [place] # (Auto) Eos # (Auto) Baso # (Auto) WBC Differential Differential Comment APTT 38.5 H Sodium 139 Potassium 4.1 Chloride 101 Carbon Dioxide 28.4 Anion Gap 10 BUN 15 Creatinine 1.00 Estimated GFR 78 L POC Glucose Random Glucose 273 H Calcium 9.0 Phosphorus 3.1 Magnesium 2.6 H Total Bilirubin 0.7 AST 322 H ALT 122 H Alkaline Phosphatase 78 B-Natriuretic Peptide 200 H Total Protein 7.6 Albumin 3.4 04/05/18 03:46 WBC RBC Hgb Hct MCV MCH MCHC RDW Plt Count MPV Neut % (Auto) Lymph % (Auto) [place] % (Auto) Eos % (Auto) Baso % (Auto) Neut # (Auto) Lymph # (Auto) [place] # (Auto) Eos # (Auto) Baso # (Auto) WBC Differential Differential Comment APTT Sodium Potassium Chloride Carbon Dioxide Anion Gap BUN Creatinine Estimated GFR POC Glucose 270 H Random Glucose Calcium Phosphorus Magnesium Total Bilirubin AST ALT Alkaline Phosphatase B-Natriuretic Peptide Total Protein Albumin Imaging: Chest X-Ray 04/04/18 09:14 CONCLUSION: Perihilar infiltrates, right worse than left Objective Remarks: GENERAL: Patient is 53 yo lying in bed in NAD SKIN: Warm and dry. HEAD: Normocephalic. EYES: No scleral icterus. No injection or drainage. NECK: Supple, trachea midline. No JVD or lymphadenopathy. CARDIOVASCULAR: Regular rate and rhythm without murmurs, gallops, or rubs. RESPIRATORY: Breath sounds equal bilaterally. No accessory muscle use. GASTROINTESTINAL: Abdomen soft, non-tender, nondistended. MUSCULOSKELETAL: No cyanosis, or edema. Neuro: Awake and alert Assessment and Plan - Assessment and Plan Plan: 1)Resp Insuff 2)STEMI 3)Leukocytosis 4)Tobacco abuse 5)Hyperglycemia 6)Obesity 7)Elevated LFT Plan Neuro: Awake and alert Pulm: Continue with oxygen kep sats >92% Bronchodilators and check CXR CV: Monitor HR and BP keep MAP>65mmHg -Status post emergent cardiac catheterization-LAD CHANDAN, EF 30%. Cards- Dr. Foley Continue Heparin drip- Monitor PTT per protocol. Continue Prasugrel 10mg daily, Aspirin IABP 1:3 per cards for possible IABP removal today : Monitor renal function, I/O', electrolytes replacement per protocol s/p Lasix yesterday GI: On PO cardiac diet Monitor LFT's ( trending down) Check US liver ID: Monitor for signs of infecting ( Fever, WBC) Afebrile. Check sputum cx, Heme: Monitor CBC, coags- On Heparin drip. Endo: Increase SSI high scale, add Levemir 7u BID for glycemic control DVT GI prophylaxis -Teds SCDs - DVT prophylaxis on Heparan drip Level 3
[2018-04-05] MEDS: Insulin Detemir Inj 1,000 UNIT/10 ML Vial SQ SCH ×2 (08:01→22:16)
[2018-04-05] MEDS ORDERED: fentaNYL Citrate Inj 100 MCG/2 ML Ampul ONE (10:28)
--- NOTE | 2018-04-05 11:31 | P.PNCA ---
Subjective Interval history: assymptomatic in nad Physical Exam Vital signs: Vital Signs 04/04/18 12:00 04/04/18 13:00 04/04/18 14:00 Temperature 98.6 F Pulse Rate 113 H 105 H 104 H Respiratory Rate 22 23 24 Blood Pressure 139/87 143/82 H Pulse Oximetry 96 97 97 04/04/18 15:00 04/04/18 16:00 04/04/18 17:00 Temperature 98.4 F Pulse Rate 107 H 103 H 109 H Respiratory Rate 23 20 19 Blood Pressure 143/100 H Pulse Oximetry 97 96 97 04/04/18 18:00 04/04/18 19:00 04/04/18 19:50 Temperature Pulse Rate 109 H 111 H Respiratory Rate 17 23 Blood Pressure 148/82 H Pulse Oximetry 92 L 98 97 04/04/18 20:00 04/04/18 21:00 04/04/18 22:00 Temperature 97.6 F Pulse Rate 110 H 110 H 106 H Respiratory Rate 24 24 21 Blood Pressure 156/87 H Pulse Oximetry 96 97 98 04/04/18 22:01 04/04/18 23:00 04/05/18 00:00 Temperature 99.5 F Pulse Rate 108 H 107 H 106 H Respiratory Rate 23 21 24 Blood Pressure 152/75 H 158/110 H Pulse Oximetry 97 97 96 04/05/18 01:00 04/05/18 02:00 04/05/18 02:01 Temperature Pulse Rate 106 H 107 H 107 H Respiratory Rate 24 22 23 Blood Pressure 158/120 H Pulse Oximetry 96 92 L 92 L 04/05/18 02:10 04/05/18 03:00 04/05/18 04:00 Temperature 99.2 F Pulse Rate 104 H 103 H 105 H Respiratory Rate 22 24 18 Blood Pressure 150/108 H 100/76 Pulse Oximetry 97 97 96 04/05/18 04:01 04/05/18 04:05 04/05/18 05:00 Temperature Pulse Rate 103 H 103 H 102 H Respiratory Rate 17 21 23 Blood Pressure 156/127 H 105/73 Pulse Oximetry 96 96 96 04/05/18 06:00 04/05/18 07:00 04/05/18 08:00 Temperature 98.6 F Pulse Rate 101 H 102 H 103 H Respiratory Rate 22 20 20 Blood Pressure 133/89 114/79 Pulse Oximetry 97 96 97 04/05/18 10:00 Temperature Pulse Rate 104 H Respiratory Rate Blood Pressure Pulse Oximetry Intake & Output 04/04/18 04/05/18 04/05/18 18:59 06:59 18:59 Intake Total 1384 / 1384 414 / 414 Output Total 2450 / 2450 450 / 450 Balance -1066 / -1066 -36 / -36 Weight 121 kg Intake: IV 1144 / 1144 164 / 164 Heparin/D5W 25,000 U/250 mL 25, 250 / 250 164 / 164 000 unit In 250 ml @ 1,200 UNITS/HR 12 mls/hr IV.CONT TITRATE PRN Rx#:[id number] Aggrastat Inj 12,500 mcg In 250 194 / 194 ml @ Per Protocol IV.CONT .Q0M ROSEMARY Rx#:[id number] NS Inj 1,000 ML @ 30 mls/hr IV. 700 / 700 SIG .Q24H ROSEMARY Rx#:[id number] Oral 240 / 240 50 / 50 Anesthesia Amount 200 / 200 Output: Urine 2450 / 2450 450 / 450 Other: # Bowel Movements 0 Assessment and Plan - Assessment (1) CAD (coronary artery disease) Code(s): I25.10 - Atherosclerotic heart disease of [place] coronary artery without angina pectoris Status: Acute (2) CHF (congestive heart failure), NYHA class IV Code(s): I50.9 - Heart failure, unspecified Status: Acute (3) Cardiomyopathy Code(s): I42.9 - Cardiomyopathy, unspecified Status: Acute (4) ST elevation myocardial infarction (STEMI) Code(s): I21.3 - ST elevation (STEMI) myocardial infarction of unspecified site Status: Acute - Plan 1.) CAD - pod # 2 primary pci with bms ost/proximal lad, u/o good, assymptomatic, iabp pulled @ 1030 am 04/05/18, continue aspirin, effient, dc iv heparin, start altace 2.5 mg qd, coreg 3.125 mg bid, statin held due to increased lfts; recheck lipids and lfts in am, d/w family, Dr Reeves and nurse , Tevin, in detail at the bedside
[2018-04-05] MEDS ORDERED: fentaNYL Citrate Inj 100 MCG/2 ML Ampul IV.PUSH ONE (13:15)
--- NOTE | 2018-04-05 13:28 | US ---
EXAM DATE: 04/05/2018 12:38 PM EDT AGE/SEX: 53 years / Male INDICATIONS: Elevated LFTs. CLINICAL DATA: This is the patient's initial encounter. Patient reports that signs and symptoms have been present for 1 day and indicates a pain score of 0/10. MEDICAL/SURGICAL HISTORY: . Coronary artery disease. . Cardiac catheterization. COMPARISON: No prior exams available for comparison. MEASUREMENTS: Liver:__ 18.6 cm. Common Bile Duct:__ 4mm. Right Kidney:__ 13.2 x 6.8 x 5.8 cm. FINDINGS: Liver: Increased echotexture without focal lesion or ductal dilation. Portal Vein: Hepatopedal flow seen in portal vein. Common Duct: No intraluminal mass or stone visualized. Gallbladder: Demonstrates no wall thickening or pericholecystic fluid. No stones visualized. Pancreas: The visualized portions are within normal limits Right Kidney: Normal echotexture and cortical thickness. No mass or hydronephrosis. There are simple cysts on the right the largest measuring 2.5 cm. Other: None. CONCLUSION: Echogenic liver compatible with fatty infiltration or hepatocellular disease. Electronically signed by: Cesar Anderson MD 04/05/2018 1:27 PM EDT
[2018-04-06] MEDS: Insulin NovoLOG Aspart Correctional Sugar Inj SQ SCH ×6 (01:00→20:22)
--- NOTE | 2018-04-06 04:08 | XR ---
EXAM DATE: 04/06/2018 4:06 AM EDT AGE/SEX: 53 years / Male INDICATIONS: Shortness of breath, possible pulmonary disease. CLINICAL DATA: This is the patient's subsequent encounter. Patient reports that signs and symptoms h ave been present for 4 - 6 days and indicates a pain score of Nonresponsive. MEDICAL/SURGICAL HISTORY: . Coronary artery disease. None. COMPARISON: [place], CHEST 1V SINGLE AP, 04/04/2018. . FINDINGS: Persistent consolidative infiltrates in the medial right upper lung. The left lung is clear. The hear t is normal in size. Both hemidiaphragms well delineated. CONCLUSION: Persistent partially consolidated right upper lung infiltrates. Electronically signed by: Barry Hale MD 04/06/2018 4:07 AM EDT
[2018-04-06 04:45] LABS: Baso # (Auto) 0.1 th/mm3 (0.0-0.2); Baso % (Auto) 0.5 % (0.0-2.0); Eos % (Auto) 0.3 % (0.0-4.0); Hematocrit 46.1 % (39.0-51.0); Hemoglobin 15.4 gm/dL (13.0-17.0); Lymph # (Auto) 2.5 th/mm3 (1.0-4.8); Lymph % (Auto) 17.6 % (9.0-44.0); Mean Corpuscular HGB Conc 33.4 % (32.0-36.0); Mean Corpuscular Hemoglobin 30.8 pg (27.0-34.0); Mean Corpuscular Volume 92.3 fL (80.0-100.0); Mean Platelet Volume 9.2 fL (7.0-11.0); Mono # (Auto) 1.4 th/mm3 (0.0-0.9); Mono % (Auto) 9.8 % (0.0-8.0); Neut # (Auto) 10.4 th/mm3 (1.8-7.7); Neut % (Auto) 71.8 % (16.0-70.0); Platelet Count 196 th/mm3 (150-450); White Blood Count 14.5 th/mm3 (4.0-11.0)
[2018-04-06 05:04] LABS: Alanine Aminotransferase 76 U/L (12-78); Albumin 3.2 g/dL (3.4-5.0); Anion Gap 7 meq/L (5-15); Aspartate Aminotransferase 113 U/L (15-37); Blood Urea Nitrogen 20 mg/dL (7-18); Calcium 9.3 mg/dL (8.5-10.1); Carbon Dioxide 30.8 meq/L (21.0-32.0); Chloride 104 meq/L (98-107); Cholesterol 221 mg/dL (120-200); Glomerular Filtration Rate 79 mL/min (>89); Glucose,Random 191 mg/dL (74-106); Magnesium 2.4 mg/dL (1.5-2.5); Phosphorus 3.3 mg/dL (2.5-4.9); Potassium 3.8 meq/L (3.5-5.1); Sodium 142 meq/L (136-145); Triglycerides 250 mg/dL (42-150)
[2018-04-06 05:07] LABS: Alkaline Phosphatase 76 U/L (45-117); Chol/HDL Ratio 5.53 Ratio; Creatine Kinase 369 U/L (39-308); HDL Cholesterol 39.9 mg/dL (40.0-60.0); LDL Cholesterol,Calculated 131 mg/dL (0-99); Total Protein 7.4 g/dL (6.4-8.2)
[2018-04-06 05:28] LABS: CKMB Percent 1.3 % (0.0-4.0); Creatine Kinase MB 4.9 ng/mL (0.5-3.6)
--- NOTE | 2018-04-06 07:46 | P.PNCC ---
Subjective Subjective Remarks/Hospital Course: 53-year-old male patient presents for an evaluation of substernal chest pains with radiation to the back starting about half an hour prior to EMS arrival. He was given aspirin 81mg 2. His blood pressure had gone down to 70/30 while on the ambulance, he was given IV fluid boluses. In the emergency department he was cool and diaphoretic, stating that chest pain was currently a 7-8 out of 10. He denied any shortness of breath, abdominal pains, or other symptoms. He did have a similar chest pain episodes on Sunday but he had gone away on its own. He was taken emergently to cardiac catheterization lab where the LAD occlusion was treated with a CHANDAN and IABP was placed for hemodynamic instability by sterile process coordinator. 04/04 Patient is awake and alert on 4L oxygen. On IABP 1:1 04/05 No events overnight. Afebrile, IABP 1:3 now. On Heparin drip. 04/06: IABP removed yesterday tolerating well hemodynamically. Denies chest pain. Good peripheral pulses. LFT trending down AST still elevated. Heparin discontinued. Chest x-ray shows right upper lobe infiltrate coronary atypical edema Objective Vital Signs / I&O: Vital Signs 04/05/18 08:00 04/05/18 09:00 04/05/18 10:00 Temperature 98.6 F Pulse Rate 103 H 104 H 101 H Respiratory Rate 20 22 19 Blood Pressure 114/79 117/77 Pulse Oximetry 97 97 96 04/05/18 10:58 04/05/18 11:00 04/05/18 11:15 Temperature Pulse Rate 109 H 109 H 105 H Respiratory Rate 23 25 H 23 Blood Pressure 122/90 123/89 122/88 Pulse Oximetry 94 L 94 L 95 04/05/18 11:30 04/05/18 11:45 04/05/18 12:00 Temperature 98.5 F Pulse Rate 103 H 103 H 101 H Respiratory Rate 21 23 19 Blood Pressure 123/88 131/92 H 130/93 H Pulse Oximetry 96 97 97 04/05/18 12:15 04/05/18 12:30 04/05/18 12:45 Temperature Pulse Rate 106 H 102 H 103 H Respiratory Rate 20 20 21 Blood Pressure 128/83 127/83 121/82 Pulse Oximetry 97 97 97 04/05/18 13:00 04/05/18 13:15 04/05/18 13:30 Temperature Pulse Rate 104 H 102 H 102 H Respiratory Rate 21 21 20 Blood Pressure 113/69 127/82 125/83 Pulse Oximetry 97 97 98 04/05/18 13:45 04/05/18 14:00 04/05/18 14:30 Temperature Pulse Rate 102 H 103 H 106 H Respiratory Rate 21 20 23 Blood Pressure 121/83 119/85 121/86 Pulse Oximetry 97 97 99 04/05/18 15:00 04/05/18 15:30 04/05/18 16:00 Temperature 98.3 F Pulse Rate 108 H 105 H 105 H Respiratory Rate 22 23 18 Blood Pressure 125/82 126/83 115/78 Pulse Oximetry 97 97 98 04/05/18 16:30 04/05/18 17:00 04/05/18 17:30 Temperature Pulse Rate 111 H 110 H 109 H Respiratory Rate 24 18 25 H Blood Pressure 120/88 111/84 114/85 Pulse Oximetry 97 99 97 04/05/18 18:00 04/05/18 18:30 04/05/18 19:00 Temperature Pulse Rate 113 H 114 H 115 H Respiratory Rate 22 18 24 Blood Pressure 130/87 139/94 H 121/82 Pulse Oximetry 98 96 95 04/05/18 19:15 04/05/18 19:30 04/05/18 20:00 Temperature 98.9 F Pulse Rate 116 H 116 H Respiratory Rate 15 24 Blood Pressure 100/75 121/84 Pulse Oximetry 98 96 99 04/05/18 20:38 04/05/18 21:00 04/05/18 21:30 Temperature Pulse Rate 116 H 125 H 118 H Respiratory Rate 25 H 22 25 H Blood Pressure 124/75 120/73 120/72 Pulse Oximetry 95 91 L 04/05/18 22:00 04/05/18 22:30 04/05/18 23:00 Temperature Pulse Rate 117 H 108 H 111 H Respiratory Rate 23 22 21 Blood Pressure 120/80 125/82 96/59 L Pulse Oximetry 94 L 97 98 04/05/18 23:30 04/06/18 00:00 04/06/18 00:31 Temperature 99.6 F Pulse Rate 109 H 107 H 111 H Respiratory Rate 20 23 24 Blood Pressure 90/54 L 115/75 115/75 Pulse Oximetry 98 96 94 L 04/06/18 01:00 04/06/18 02:00 04/06/18 03:00 Temperature Pulse Rate 108 H 102 H 98 H Respiratory Rate 24 21 21 Blood Pressure 119/79 109/66 108/66 Pulse Oximetry 93 L 95 95 04/06/18 04:00 04/06/18 05:00 04/06/18 06:00 Temperature 98.9 F Pulse Rate 100 H 94 H 107 H Respiratory Rate 22 19 19 Blood Pressure 115/85 96/62 L 129/92 H Pulse Oximetry 93 L 96 94 L Intake & Output 04/05/18 04/06/18 04/06/18 18:59 06:59 18:59 Intake Total 270 / 270 240 / 240 Output Total 300 / 300 Balance -30 / -30 240 / 240 Weight 119 kg Intake: IV 30 / 30 Heparin/D5W 25,000 U/250 mL 25, 30 / 30 000 unit In 250 ml @ 1,200 UNITS/HR 12 mls/hr IV.CONT TITRATE PRN Rx#:[id number] Oral 240 / 240 240 / 240 Output: Urine 300 / 300 Other: # Voids 1 1 # Bowel Movements 0 Result Diagrams: 04/06/18 04:03 04/06/18 04:03 Objective Remarks: GENERAL: Patient is 53 yo lying in bed in NAD SKIN: Warm and dry. HEAD: Normocephalic. EYES: No scleral icterus. No injection or drainage. NECK: Supple, trachea midline. No JVD or lymphadenopathy. CARDIOVASCULAR: Regular rate and rhythm without murmurs, gallops, or rubs. RESPIRATORY: Breath sounds equal bilaterally. No accessory muscle use. GASTROINTESTINAL: Abdomen soft, non-tender, nondistended. MUSCULOSKELETAL: No cyanosis, or edema. Peripheral pulses palpable. No hematoma Neuro: Awake and alert. Oriented to person and place and time. No focal deficit Assessment and Plan - Assessment and Plan Plan: ASSESSMENT: STEMI Leukocytosis Right upper lobe infiltrate ? Atypical pulmonary edema Tobacco abuse Type 2 diabetes/hyperglycemia (HbA1c 9.6) Obesity levated LFT Plan Neuro: Awake and alert Pulm: Continue with oxygen keep sats >92% Bronchodilators and repeat CXR am Right upper lobe infiltrate may be secondary to atypical pulmonary edema Strongly advised to quit smoking CV: Monitor HR and BP keep MAP>65mmHg Status post emergent cardiac catheterization-LAD CHANDAN, EF 30%. Cards- Dr. Foley Off Heparin drip- Monitor PTT per protocol. Continue Prasugrel 10mg daily, Aspirin TYSON inhibitors and carvedilol added yesterday by Dr. Foley IABP removed 04/05/2018 Cannot use statins due to transaminitis Echo prior to DC, Add Spironolactone if EF is less than 30%, consider LifeVest : Monitor renal function, I/O', electrolytes replacement per protocol s/p Lasix yesterday. Give 20 mg IV x1 today GI: On PO cardiac diet Monitor LFT's ( trending down) US liver fatty liver ID: Monitor for signs of infecting ( Fever, WBC) Afebrile. F/U sputum cx, repeat chest x-ray in a.m.. No clinical signs of pneumonia Heme: Monitor CBC, coags- Off Heparin drip. Endo: Increased SSI high scale, Levemir 7u BID for glycemic control. HbA1c 9.6 DVT GI prophylaxis -Teds SCDs - DVT prophylaxis start Lovenox 40 mg sq daily Level 3 Consult [facility] to assume care in am, Transfer to [facility] with Tele Code Status: Full
[2018-04-06] MEDS: Insulin Detemir Inj 1,000 UNIT/10 ML Vial SQ SCH ×2 (08:33→20:22)
[2018-04-06] MEDS: Enoxaparin Inj 40 MG/0.4 ML Syringe SQ SCH (08:33)
[2018-04-06] MEDS: Ramipril 2.5 MG Capsule PO SCH (08:34)
--- NOTE | 2018-04-06 10:59 | P.PNCA ---
Subjective Interval history: assymptomatic in nad Physical Exam Vital signs: Vital Signs 04/05/18 10:58 04/05/18 11:00 04/05/18 11:15 Temperature Pulse Rate 109 H 109 H 105 H Respiratory Rate 23 25 H 23 Blood Pressure 122/90 123/89 122/88 Pulse Oximetry 94 L 94 L 95 04/05/18 11:30 04/05/18 11:45 04/05/18 12:00 Temperature 98.5 F Pulse Rate 103 H 103 H 101 H Respiratory Rate 21 23 19 Blood Pressure 123/88 131/92 H 130/93 H Pulse Oximetry 96 97 97 04/05/18 12:15 04/05/18 12:30 04/05/18 12:45 Temperature Pulse Rate 106 H 102 H 103 H Respiratory Rate 20 20 21 Blood Pressure 128/83 127/83 121/82 Pulse Oximetry 97 97 97 04/05/18 13:00 04/05/18 13:15 04/05/18 13:30 Temperature Pulse Rate 104 H 102 H 102 H Respiratory Rate 21 21 20 Blood Pressure 113/69 127/82 125/83 Pulse Oximetry 97 97 98 04/05/18 13:45 04/05/18 14:00 04/05/18 14:30 Temperature Pulse Rate 102 H 103 H 106 H Respiratory Rate 21 20 23 Blood Pressure 121/83 119/85 121/86 Pulse Oximetry 97 97 99 04/05/18 15:00 04/05/18 15:30 04/05/18 16:00 Temperature 98.3 F Pulse Rate 108 H 105 H 105 H Respiratory Rate 22 23 18 Blood Pressure 125/82 126/83 115/78 Pulse Oximetry 97 97 98 04/05/18 16:30 04/05/18 17:00 04/05/18 17:30 Temperature Pulse Rate 111 H 110 H 109 H Respiratory Rate 24 18 25 H Blood Pressure 120/88 111/84 114/85 Pulse Oximetry 97 99 97 04/05/18 18:00 04/05/18 18:30 04/05/18 19:00 Temperature Pulse Rate 113 H 114 H 115 H Respiratory Rate 22 18 24 Blood Pressure 130/87 139/94 H 121/82 Pulse Oximetry 98 96 95 04/05/18 19:15 04/05/18 19:30 04/05/18 20:00 Temperature 98.9 F Pulse Rate 116 H 116 H Respiratory Rate 15 24 Blood Pressure 100/75 121/84 Pulse Oximetry 98 96 99 04/05/18 20:38 04/05/18 21:00 04/05/18 21:30 Temperature Pulse Rate 116 H 125 H 118 H Respiratory Rate 25 H 22 25 H Blood Pressure 124/75 120/73 120/72 Pulse Oximetry 95 91 L 04/05/18 22:00 04/05/18 22:30 04/05/18 23:00 Temperature Pulse Rate 117 H 108 H 111 H Respiratory Rate 23 22 21 Blood Pressure 120/80 125/82 96/59 L Pulse Oximetry 94 L 97 98 04/05/18 23:30 04/06/18 00:00 04/06/18 00:31 Temperature 99.6 F Pulse Rate 109 H 107 H 111 H Respiratory Rate 20 23 24 Blood Pressure 90/54 L 115/75 115/75 Pulse Oximetry 98 96 94 L 04/06/18 01:00 04/06/18 02:00 04/06/18 03:00 Temperature Pulse Rate 108 H 102 H 98 H Respiratory Rate 24 21 21 Blood Pressure 119/79 109/66 108/66 Pulse Oximetry 93 L 95 95 04/06/18 04:00 04/06/18 05:00 04/06/18 06:00 Temperature 98.9 F Pulse Rate 100 H 94 H 107 H Respiratory Rate 22 19 19 Blood Pressure 115/85 96/62 L 129/92 H Pulse Oximetry 93 L 96 94 L 04/06/18 08:00 04/06/18 08:03 04/06/18 10:00 Temperature 98.1 F Pulse Rate 103 H 75 Respiratory Rate 18 Blood Pressure 113/77 Pulse Oximetry 95 94 L Intake & Output 04/05/18 04/06/18 04/06/18 18:59 06:59 18:59 Intake Total 270 / 270 240 / 240 Output Total 300 / 300 Balance -30 / -30 240 / 240 Weight 119 kg Intake: IV 30 / 30 Heparin/D5W 25,000 U/250 mL 25, 30 / 30 000 unit In 250 ml @ 1,200 UNITS/HR 12 mls/hr IV.CONT TITRATE PRN Rx#:[id number] Oral 240 / 240 240 / 240 Output: Urine 300 / 300 Other: # Voids 1 1 # Bowel Movements 0 Assessment and Plan - Assessment (1) CAD (coronary artery disease) Code(s): I25.10 - Atherosclerotic heart disease of [place] coronary artery without angina pectoris Status: Acute (2) CHF (congestive heart failure), NYHA class IV Code(s): I50.9 - Heart failure, unspecified Status: Acute (3) Cardiomyopathy Code(s): I42.9 - Cardiomyopathy, unspecified Status: Acute (4) ST elevation myocardial infarction (STEMI) Code(s): I21.3 - ST elevation (STEMI) myocardial infarction of unspecified site Status: Acute - Plan 1.) CAD - pod # 3 primary pci with bms ost/proximal lad, u/o good, assymptomatic, iabp pulled @ 1030 am 04/05/18, continue aspirin, effient, dc iv heparin, continue altace 2.5 mg qd, increase coreg 6.25 mg bid, increased lfts improving, start lipitor 40 mg hs; [facility], ambulate with assistance, if assymptomatic, ok to dc from cv standpoint, f/u with me 04/08/18, d/w family, nurse, Jerel, in detail at the bedside; i have explained to patient and his that he must be compliant with aspirin and effient or risk life threatening stent thrombosis, they understand
[2018-04-06] MEDS: Carvedilol 6.25 MG Tablet PO SCH (20:22)
[2018-04-07] MEDS: Insulin NovoLOG Aspart Correctional Sugar Inj SQ SCH ×5 (00:43→18:32)
[2018-04-07 04:30] VITALS: O2SAT 95
--- NOTE | 2018-04-07 05:48 | XR ---
EXAM DATE: 04/07/2018 5:41 AM EDT AGE/SEX: 53 years / Male INDICATIONS: Shortness of breath, possible pulmonary disease. CLINICAL DATA: This is the patient's subsequent encounter. Patient reports that signs and symptoms h ave been present for 1 week and indicates a pain score of 0/10. MEDICAL/SURGICAL HISTORY: . Coronary artery disease. None. COMPARISON: [facility], CHEST 1V SINGLE AP, 04/06/2018. . FINDINGS: There is persistent partially consolidative right medial upper lung infiltrate. The left lung is brielle r. The heart is normal size. Both hemidiaphragms well delineated. CONCLUSION: Persistent partially consolidative right upper lung infiltrate. Electronically signed by: Barry Hale MD 04/07/2018 5:47 AM EDT
--- NOTE | 2018-04-07 07:58 | P.PN ---
Subjective Interval history: no complains of pain patient here visiting from [place] no family history Physical Exam Vital signs: Vital Signs 04/06/18 08:00 04/06/18 08:03 04/06/18 10:00 Temperature 98.1 F Pulse Rate 103 H 75 Respiratory Rate 18 Blood Pressure 113/77 Pulse Oximetry 95 94 L 04/06/18 12:00 04/06/18 14:00 04/06/18 17:00 Temperature 98.6 F Pulse Rate 97 H 101 H 110 H Respiratory Rate 18 Blood Pressure 123/80 Pulse Oximetry 95 04/06/18 18:00 04/06/18 19:00 04/06/18 20:00 Temperature 98.9 F Pulse Rate 104 H 98 H 106 H Respiratory Rate 18 Blood Pressure 121/81 Pulse Oximetry 97 04/06/18 21:00 04/06/18 22:00 04/06/18 23:00 Temperature 98.4 F Pulse Rate 102 H 98 H 93 H Respiratory Rate 18 Blood Pressure 109/74 Pulse Oximetry 96 04/07/18 00:00 04/07/18 01:00 04/07/18 02:00 Temperature Pulse Rate 92 H 88 96 H Respiratory Rate Blood Pressure Pulse Oximetry 04/07/18 03:00 04/07/18 04:00 04/07/18 05:00 Temperature 98.2 F Pulse Rate 93 H 95 H 93 H Respiratory Rate 16 Blood Pressure 120/82 Pulse Oximetry 95 04/07/18 06:00 04/07/18 07:00 Temperature Pulse Rate 87 86 Respiratory Rate Blood Pressure Pulse Oximetry Intake & Output 04/06/18 04/07/18 04/07/18 18:59 06:59 18:59 Intake Total 650 / 650 720 / 720 Output Total 800 / 800 800 / 800 Balance -150 / -150 -80 / -80 Weight 118.9 kg Intake: Oral 650 / 650 720 / 720 Output: Urine 800 / 800 800 / 800 Other: # Voids 1 Date of Last Bowel Movement 04/06/18 04/06/18 # Bowel Movements 1 Narrative: awake and alert, oriented x 3 no distress anciteric neck supple lungs- no rales regular rhythm abdomen soft, non tender right groin- no hematoma good peripheral puses neuro exam - urnemarkable Results - Labs CBC & Chem 7: 04/07/18 07:11 04/06/18 04:03 Laboratory Results - last 24 hr 04/06/18 04/06/18 04/06/18 08:25 12:20 16:22 POC Glucose 190 H 267 H 227 H 04/06/18 04/06/18 04/07/18 19:52 23:39 04:20 POC Glucose 175 H 146 H 175 H - Imaging Impressions Chest X-Ray 04/07/18 06:00 CONCLUSION: Persistent partially consolidative right upper lung infiltrate. - Procedures cardiac cath [facility] PCI LAD Assessment and Plan - Plan 53 years old male admitted 04/03 ACS, STEMI S/P emergent cath with PCI - LAD CArdiomyopathy - EF 30% - IABP removed 04/05 - on ASA, Prasurgel, TYSON, BB added - statin started 04/06- ff LFTs as OP - Cardiology ff- DC if cleared - patient here from [place] visiting DM type 2, newly diagnosed - A1C- 9.6 - get dietitian diabetic education - started on on Levemeri bid 7 units bid - advised patient to ff up with a PCP - dioscussed with him oals right upper lobe infiltrate - Right upper lobe infiltrate may be secondary to atypical pulmonary edema - no fever or chills, no cough - Strongly advised to quit smoking - ff up CXR or CT as OP - c/o PCP Transaminitis- LFTs- trended down - started on statins 04/06 - ff LFTs as OP : Monitor renal function, I/O', electrolytes replacement per protocol s/p Lasix yesterday. Give 20 mg IV x1 today GI: On PO cardiac diet Monitor LFT's ( trending down) US liver fatty liver ID: Monitor for signs of infecting ( Fever, WBC) Afebrile. F/U sputum cx, repeat chest x-ray in a.m.. No clinical signs of pneumonia Heme: Monitor CBC, coags- Off Heparin drip. Endo: Increased SSI high scale, Levemir 7u BID for glycemic control. HbA1c 9.6 DVT GI prophylaxis -Teds SCDs - DVT prophylaxis Lovenox 40 mg sq daily UP and ambulate Code Status: Full
[2018-04-07 08:15] LABS: Hematocrit 40.5 % (39.0-51.0); Hemoglobin 14.2 gm/dL (13.0-17.0); Mean Corpuscular Hemoglobin 31.3 pg (27.0-34.0); Mean Corpuscular Volume 89.5 fL (80.0-100.0); Mean Platelet Volume 9.6 fL (7.0-11.0); Platelet Count 177 th/mm3 (150-450); Red Blood Count 4.53 mil/mm3 (4.50-5.90); Red Cell Distribution Width 13.4 % (11.6-17.2); White Blood Count 11.3 th/mm3 (4.0-11.0)
[2018-04-07 08:28] LABS: Alanine Aminotransferase 58 U/L (12-78); Albumin 2.9 g/dL (3.4-5.0); Anion Gap 10 meq/L (5-15); Aspartate Aminotransferase 68 U/L (15-37); Blood Urea Nitrogen 22 mg/dL (7-18); Chloride 102 meq/L (98-107); Glomerular Filtration Rate 84 mL/min (>89); Glucose,Random 166 mg/dL (74-106); Magnesium 2.4 mg/dL (1.5-2.5); Potassium 3.7 meq/L (3.5-5.1); Sodium 138 meq/L (136-145)
[2018-04-07 08:31] LABS: Alkaline Phosphatase 71 U/L (45-117); Total Protein 6.7 g/dL (6.4-8.2)
[2018-04-07] MEDS: Carvedilol 6.25 MG Tablet PO SCH (09:26)
[2018-04-07] MEDS: Ramipril 2.5 MG Capsule PO SCH (09:26)
[2018-04-07] MEDS: Insulin Detemir Inj 1,000 UNIT/10 ML Vial SQ SCH (09:27)
[2018-04-07] MEDS: Enoxaparin Inj 40 MG/0.4 ML Syringe SQ SCH (09:27)
[2018-04-07 11:41] VITALS: RESP 18
--- NOTE | 2018-04-07 11:45 | P.PNCA ---
Subjective Interval history: ambulating without symptoms Physical Exam Vital signs: Vital Signs 04/06/18 12:00 04/06/18 14:00 04/06/18 17:00 Temperature 98.6 F Pulse Rate 97 H 101 H 110 H Respiratory Rate 18 Blood Pressure 123/80 Pulse Oximetry 95 04/06/18 18:00 04/06/18 19:00 04/06/18 20:00 Temperature 98.9 F Pulse Rate 104 H 98 H 106 H Respiratory Rate 18 Blood Pressure 121/81 Pulse Oximetry 97 04/06/18 21:00 04/06/18 22:00 04/06/18 23:00 Temperature 98.4 F Pulse Rate 102 H 98 H 93 H Respiratory Rate 18 Blood Pressure 109/74 Pulse Oximetry 96 04/07/18 00:00 04/07/18 01:00 04/07/18 02:00 Temperature Pulse Rate 92 H 88 96 H Respiratory Rate Blood Pressure Pulse Oximetry 04/07/18 03:00 04/07/18 04:00 04/07/18 05:00 Temperature 98.2 F Pulse Rate 93 H 95 H 93 H Respiratory Rate 16 Blood Pressure 120/82 Pulse Oximetry 95 04/07/18 06:00 04/07/18 07:00 04/07/18 08:43 Temperature 98.3 F Pulse Rate 87 99 H Respiratory Rate 18 Blood Pressure 107/72 Pulse Oximetry 95 95 Intake & Output 04/06/18 04/07/18 04/07/18 18:59 06:59 18:59 Intake Total 650 / 650 720 / 720 Output Total 800 / 800 800 / 800 Balance -150 / -150 -80 / -80 Weight 118.9 kg Intake: Oral 650 / 650 720 / 720 Output: Urine 800 / 800 800 / 800 Other: # Voids 1 Date of Last Bowel Movement 04/06/18 04/06/18 04/06/18 # Bowel Movements 1 Assessment and Plan - Assessment (1) CAD (coronary artery disease) Code(s): I25.10 - Atherosclerotic heart disease of [place] coronary artery without angina pectoris Status: Acute (2) CHF (congestive heart failure), NYHA class IV Code(s): I50.9 - Heart failure, unspecified Status: Acute (3) Cardiomyopathy Code(s): I42.9 - Cardiomyopathy, unspecified Status: Acute (4) ST elevation myocardial infarction (STEMI) Code(s): I21.3 - ST elevation (STEMI) myocardial infarction of unspecified site Status: Acute - Plan 1.) CAD - pod # 4 primary pci with bms ost/proximal lad, u/o good, assymptomatic, iabp pulled @ 1030 am 04/05/18, continue aspirin, effient, dc iv heparin, continue altace 2.5 mg qd, coreg 6.25 mg bid, increased lfts improving , start lipitor 40 mg hs; ok to dc from cardiac standpoint, f/u with me 04/08/18 , d/w patient in detail at the bedside; i have explained to patient and his that he must be compliant with aspirin and effient or risk life threatening stent thrombosis, they understand
--- NOTE | 2018-04-07 13:12 | ECHRPT ---
Indication: Heart failure, unspecified CONCLUSIONS The left ventricle is not well visualized. The left ventricular systolic function is hqfwwqaz-[id number] reduced with an estimated ejection fra ction in the range of 35-40%. Mild concentric left ventriclar hypertrophy. Normal left ventricular size. Trace mitral valve regurgitation. The pulmonary valve is not well visualized. BP: / HR: 89 Rhythm: Sinus MEASUREMENTS (Male / Female) Normal Values Technical Quality:Poor 2D ECHO LV Diastolic Diameter PLAX 4.4 cm 4.2 - 5.9 / 3.9 - 5.3 cm LV Systolic Diameter PLAX 3.5 cm IVS Diastolic Thickness 1.0 cm 0.6 - 1.0 / 0.6 - 0.9 cm LVPW Diastolic Thickness 1.0 cm 0.6 - 1.0 / 0.6 - 0.9 cm LV Relative Wall Thickness 0.4 LVOT Diameter 2.1 cm M-MODE Aortic Root Diameter MM 3.0 cm LA Systolic Diameter MM 3.4 cm LA Ao Ratio MM 1.1 AV Cusp Separation MM 1.8 cm DOPPLER AV Peak Velocity 103.0 cm/s AV Peak Gradient 4.2 mmHg LVOT Peak Velocity 63.2 cm/s LVOT Peak Gradient 1.6 mmHg AV Area Cont Eq pk 2.1 cm Mitral E Point Velocity 61.7 cm/s Mitral A Point Velocity 55.8 cm/s Mitral E to A Ratio 1.1 LV E' Lateral Velocity 5.9 cm/s Mitral E to LV E' Lateral Ratio 10.4 LV E' Septal Velocity 5.3 cm/s Mitral E to LV E' Septal Ratio 11.7 PV Peak Velocity 73.3 cm/s PV Peak Gradient 2.1 mmHg FINDINGS LEFT VENTRICLE The left ventricle is not well visualized. The left ventricular systolic function is nvfdrfye-bj-vqngmzs reduced with an estimated ejection fra ction in the range of 35-40%. Mild concentric left ventriclar hypertrophy. Normal left ventricular size. RIGHT VENTRICLE Normal right ventricular size and systolic function. LEFT ATRIUM The left atrial size is normal. RIGHT ATRIUM The right atrial size is normal. ATRIAL SEPTUM Normal atrial septal thickness without atrial level shunting by limited color doppler interrogation. AORTA The aortic root and proximal ascending aorta are normal in size on limited imaging. MITRAL VALVE Structurally normal mitral valve. Trace mitral valve regurgitation. AORTIC VALVE Trileaflet aortic valve. No aortic valve stenosis or regurgitation. TRICUSPID VALVE Structurally normal tricuspid valve. No tricuspid valve stenosis or regurgitation. PULMONARY VALVE The pulmonary valve is not well visualized. VESSELS The inferior vena cava is normal in size. PERICARDIUM No pericardial effusion. Bunny Coello MD, FACC (Electronically Signed) Final Date:07 April 2018 13:11
[2018-04-07 15:10] VITALS: BP 106/66; PULSE 84; TEMP 98
--- NOTE | 2018-04-07 15:45 | P.DS ---
Date of admission: 04/03/18 19:50 Primary care physician: UNKNOWN Brief History from admission: 53-year-old male patient presents for an evaluation of substernal chest pains with radiation to the back starting about half an hour prior to EMS arrival. He was given aspirin 81mg 2. His blood pressure had gone down to 70/30 while on the ambulance, he was given IV fluid boluses. In the emergency department he was cool and diaphoretic, stating that chest pain was currently a 7-8 out of 10. He denied any shortness of breath, abdominal pains, or other symptoms. He did have a similar chest pain episodes on Sunday but he had gone away on its own. He was taken emergently to cardiac catheterization lab where the LAD occlusion was treated with a CHANDAN and IABP was placed for hemodynamic instability by supervisor of research. DS: Medications - Discharge Medications Prescriptions: RX: aspirin 162 mg PO DAILY #90 tab RX: atorvastatin 40 mg PO HS #30 tab carvedilol [Coreg] 6.25 mg PO BID 30 Days #60 tab insulin detemir U-100 [Levemir U-100 Insulin] 7 unit SUB-Q BID 30 Days #1 amp prasugrel [Effient] 10 mg PO DAILY 30 Days #30 tab RX: ramipril 2.5 mg PO DAILY 30 Days #30 cap DS: Summary Hospital Course: 53 years old male admitted 04/03 ACS, STEMI S/P emergent cath with PCI - LAD CArdiomyopathy - EF 30% - IABP removed 04/05 - on ASA, Prasurgel, TYSON, BB added - statin started 04/06- ff LFTs as OP - Cardiology ff- DC if cleared - patient here from [place] visiting DM type 2, newly diagnosed - A1C- 9.6 - get dietitian diabetic education - started on on Levemeri bid 7 units bid - advised patient to ff up with a PCP - dioscussed with him oals right upper lobe infiltrate - Right upper lobe infiltrate may be secondary to atypical pulmonary edema - no fever or chills, no cough - Strongly advised to quit smoking - ff up CXR or CT as OP - c/o PCP Transaminitis- LFTs- trended down - started on statins 04/06 - ff LFTs as OP : Monitor renal function, I/O', electrolytes replacement per protocol s/p Lasix yesterday. Give 20 mg IV x1 today GI: On PO cardiac diet Monitor LFT's ( trending down) US liver fatty liver ID: Monitor for signs of infecting ( Fever, WBC) Afebrile. F/U sputum cx, repeat chest x-ray in a.m.. No clinical signs of pneumonia Heme: Monitor CBC, coags- Off Heparin drip. Endo: Increased SSI high scale, Levemir 7u BID for glycemic control. HbA1c 9.6 - did bedsdie diabetes education - advise weight reduction and diet - OP ff up with PCP - advised on hypoglycemic rections DVT GI prophylaxis -Teds SCDs - DVT prophylaxis Lovenox 40 mg sq daily UP and ambulate Code Status: Full - Time Spent with Patient Total time spent providing and/or coordinating discharge services: Greater than 30 minutes - Quality: VTE Deep Vein Thrombosis/Pulmonary Embolism Present on Admission: Yes Exam Vital signs: Vital Signs 04/06/18 17:00 04/06/18 18:00 04/06/18 19:00 Temperature Pulse Rate 110 H 104 H 98 H Respiratory Rate Blood Pressure Pulse Oximetry 04/06/18 20:00 04/06/18 21:00 04/06/18 22:00 Temperature 98.9 F Pulse Rate 106 H 102 H 98 H Respiratory Rate 18 Blood Pressure 121/81 Pulse Oximetry 97 04/06/18 23:00 04/07/18 00:00 04/07/18 01:00 Temperature 98.4 F Pulse Rate 93 H 92 H 88 Respiratory Rate 18 Blood Pressure 109/74 Pulse Oximetry 96 04/07/18 02:00 04/07/18 03:00 04/07/18 04:00 Temperature 98.2 F Pulse Rate 96 H 93 H 95 H Respiratory Rate 16 Blood Pressure 120/82 Pulse Oximetry 95 04/07/18 05:00 04/07/18 06:00 04/07/18 07:00 Temperature 98.3 F Pulse Rate 93 H 87 99 H Respiratory Rate 18 Blood Pressure 107/72 Pulse Oximetry 95 04/07/18 08:00 04/07/18 08:43 04/07/18 09:00 Temperature Pulse Rate 98 H 100 H Respiratory Rate Blood Pressure Pulse Oximetry 95 04/07/18 10:00 04/07/18 11:00 04/07/18 12:00 Temperature 98.0 F Pulse Rate 94 H 84 84 Respiratory Rate 18 Blood Pressure 106/66 Pulse Oximetry 95 04/07/18 13:00 04/07/18 14:00 Temperature Pulse Rate 86 84 Respiratory Rate Blood Pressure Pulse Oximetry Intake & Output 04/06/18 04/07/18 04/07/18 18:59 06:59 18:59 Intake Total 650 / 650 720 / 720 Output Total 800 / 800 800 / 800 Balance -150 / -150 -80 / -80 Weight 118.9 kg Intake: Oral 650 / 650 720 / 720 Output: Urine 800 / 800 800 / 800 Other: # Voids 1 Date of Last Bowel Movement 04/06/18 04/06/18 04/06/18 # Bowel Movements 1 Narrative: awake and alert, oriented x 3 no distress anciteric neck supple lungs- no rales regular rhythm abdomen soft, non tender right groin- no hematoma good peripheral puses neuro exam - urnemarkable Results Procedures completed during hospitalization: cardiac cath wth PCI LAD Labs on day of discharge: Labs from last 24 hours 04/07/18 04/07/18 04/07/18 12:08 08:19 07:11 WBC RBC Hgb Hct MCV MCH MCHC RDW Plt Count MPV Hematology Comments Sodium 138 Potassium 3.7 Chloride 102 Carbon Dioxide 26.0 Anion Gap 10 BUN 22 H Creatinine 0.93 Estimated GFR 84 L POC Glucose 228 H 211 H Random Glucose 166 H Calcium 9.0 Magnesium 2.4 Total Bilirubin 0.9 AST 68 H ALT 58 Alkaline Phosphatase 71 Total Protein 6.7 D Albumin 2.9 L 04/07/18 04/07/18 04/06/18 07:11 04:20 23:39 WBC 11.3 H RBC 4.53 Hgb 14.2 Hct 40.5 MCV 89.5 MCH 31.3 MCHC 35.0 RDW 13.4 Plt Count 177 MPV 9.6 Hematology Comments Sodium Potassium Chloride Carbon Dioxide Anion Gap BUN Creatinine Estimated GFR POC Glucose 175 H 146 H Random Glucose Calcium Magnesium Total Bilirubin AST ALT Alkaline Phosphatase Total Protein Albumin 04/06/18 04/06/18 19:52 16:22 WBC RBC Hgb Hct MCV MCH MCHC RDW Plt Count MPV Hematology Comments Sodium Potassium Chloride Carbon Dioxide Anion Gap BUN Creatinine Estimated GFR POC Glucose 175 H 227 H Random Glucose Calcium Magnesium Total Bilirubin AST ALT Alkaline Phosphatase Total Protein Albumin - Impressions ITS Impressions Liver Ultrasound 04/05/18 00:00 CONCLUSION: Echogenic liver compatible with fatty infiltration or hepatocellular disease. Chest X-Ray 04/07/18 06:00 CONCLUSION: Persistent partially consolidative right upper lung infiltrate. Discharge Plan - Discharge Disposition Patient Disposition: 01 Discharge Home - Discharge Condition Condition: Stable - Discharge Order Discharge Orders: Discharge Order (Routine); Ordered 04/07/18 Ordered By: Berhane Cavanaugh - Discharge Details Anticipated Discharge Date: 04/03/18 - Physicians Team Primary Care Provider: UNKNOWN, Attending Provider: Berhane Cavanaugh Other Providers: Adalid Verma MD
--- NOTE | 2018-04-24 09:37 | MB ---
cc: Antonio Foley MD DATE: 04/03/2018 HISTORY OF PRESENT ILLNESS: Mr. Crews is a very pleasant 53-year-old gentleman visiting from [place] who presents to the emergency room with an anterior injury pattern. STEMI alert has been called. Chest pain began approximately an hour and a half prior to arrival to the ER. In the ER, the patient was given baby aspirin x 2. He was noted to be intermittently hypotensive to 70/30 in the ambulance, treated with IV fluids. Otherwise, denies any fevers, chills, cough, GI or bleeding, orthopnea, syncope, or dizziness. ALLERGIES: None. SOCIAL HISTORY: Denies tobacco or alcohol use. PHYSICAL EXAMINATION: VITAL SIGNS: On arrival to the emergency room, initial blood pressure 237/138, pulse 121, temperature 97.6. GENERAL: He is alert and oriented x 3, in moderate to severe distress. NECK: Supple. No JVD. No bruit. CARDIOVASCULAR: S1, S2. No murmurs, rubs, gallops. LUNGS: Clear to auscultation bilaterally. ABDOMEN: Soft, nontender, nondistended, positive bowel sounds. EXTREMITIES: No lower extremity edema. DIAGNOSTIC DATA: White count 12.2, hemoglobin 16.6, hematocrit 49.0, platelet count 224. INR is 1.0. Sodium 135, potassium 5.8, chloride 101, bicarbonate 24, creatinine 1.1. Troponin 0.73. BNP 18. EKG shows anteroseptal Q-waves with [address] segment elevation in leads V2, V3, V4. Chest x-ray: Diffuse infiltrates are noted consistent with moderate pulmonary edema versus pneumonia. Clinical correlation recommended. Mild cardiomegaly. DISCUSSION: I discussed the case with Dr. Cortes. STEMI alert has been called. The patient presented with a very high risk profile with anterior septal Q-waves, extremely labile blood pressure ranging from 70 systolic up to above 200 systolic, pulmonary edema on the chest x-ray. The patient has been treated with aspirin and heparin. PLAN: Emergent left heart catheterization and primary PCI. Further recommendations based on the coronary anatomy and LV function, LV end-diastolic pressure. Antonio Foley MD [facility]/rs , 08:26 AM , 08:34 AM
== END 2018-04-07 18:14 | disposition home or self-care (01) ==
LOC: NEPE 19:30 → NEDA 19:50 → HIMC 21:30 → HCIS 04-06 15:47
PROVIDERS: ADMIT Internal Medicine; ATTEND Internal Medicine